=== PATIENT | female | born 1980 | race Caucasian/White ===

== ENCOUNTER 2019-04-10 19:13 | Emergency (ER) | payer OTHER, SELFPAY ==
--- NOTE | ~2019-04-10 | CT_ITS ---
EXAMINATION: CT lumbar spine wo con DATE: 04/10/2019 20:00 INDICATION: Low back pain. Fall. TECHNIQUE: Computed tomography (CT) of the lumbar spine was performed without intravenous contrast. A utomated exposure control and iterative reconstruction technique were employed. The dose-length produ ct was 1074.01 mGy-cm. COMPARISON: None FINDINGS: There is an intrauterine device in expected position. There is 2 degrees dextrocurvature of lumbar spine. Vertebral body heights are normal. There is mildly decreased disc height at L4-L5 and moderately decreased disc height at L5-S1. The following disc levels are specifically discussed: L1-L2: The disc does not extend beyond the endplate margin. There is mild bilateral facet joint osteo arthritis. There is no neural foraminal stenosis. There is no central canal stenosis. L2-L3: The disc does not extend beyond the endplate margin. There is mild bilateral facet joint osteo arthritis. There is no neural foraminal stenosis. There is no central canal stenosis. L3-L4: The disc does not extend beyond the endplate margin. There is mild bilateral facet joint osteo arthritis. There is no neural foraminal stenosis. There is no central canal stenosis. L4-L5: The disc is bulging. There is mild bilateral facet joint osteoarthritis. There is mild bilater al neural foraminal stenosis. There is mild central canal stenosis. L5-S1: The disc is bulging. There is mild bilateral facet joint osteoarthritis. There is mild bilater al neural foraminal stenosis. There is mild central canal stenosis. IMPRESSION: 1. No fracture. 2. Moderate lower lumbar spondylosis. Reviewed, dictated and finalized at location A. NELER OUTSOLE
[2019-04-10 19:20] VITALS: BP 130/91; PULSE 120; RESP 20; TEMP 36.9; O2SAT 100
--- NOTE | 2019-04-10 19:40 | ED.FALL ---
HPI - Fall General Chief Complaint: Fall Stated Complaint: FALL, BUTT PAIN Time Seen by Provider: 04/10/19 19:27 Source: patient Mode of arrival: ambulatory Limitations: no limitations History of Present Illness HPI Narrative: This is a 38 year old female that presents to the ER for low back pain after a fall yesterday. Reports she slipped going down her stairs. Reports falling onto her bottom down about 4 steps. Denies hitting her head or loss of consciousness. Reports since she has had low back/tailbone pain. Denies saddle anesthesia, or bowel/bladder incontinence. Related Data Home Medications Medication Instructions Recorded Confirmed alprazolam 02/10/19 buspirone mg 02/10/19 levonorgestrel [Mirena] 1 device INTRAUTERINE ONCE 02/10/19 02/10/19 omeprazole PO 02/24/19 Allergies Allergy/AdvReac Type Severity Reaction Status Date / Time aspirin Allergy Unknown Unknown Verified 04/10/19 19:23 caffeine Allergy Unknown Unknown Verified 04/10/19 19:23 codeine Allergy Unknown Unknown Verified 04/10/19 19:23 erythromycin base Allergy Unknown Unknown Verified 04/10/19 19:23 Review of Systems Review of Systems: Narrative: CONSTITUTIONAL: Denies fever MUSCULOSKELETAL: Reports back pain, joint pain, and myalgia. NEUROLOGIC: Denies numbness, or weakness. All systems reviewed & are unremarkable except as noted in HPI and below PMFSH Past Medical History Medical History (Updated 04/10/19 @ 20:22 by Preethi Yanez PA-C) Anxiety Depression Surgical History Surgical History (Updated 02/24/19 @ 18:50 by Abi Dickson, ADOPTION COUNSELOR, ) History of dilatation and curettage Social History Social History Smoking status: Heavy tobacco smoker Alcohol intake: current Exam Narrative: Exam Narrative: GENERAL: Well-appearing, well-nourished, and in no acute distress. HEAD: Normocephalic, atraumatic. EYES: EOMI. CHEST: Clear to auscultation. No respiratory distress. No wheezes rales or rhonchi HEART: Regular rate and rhythm. No murmur heard. Normal peripheral pulses. BACK: Tender to palpation of midline lumbar spine and sacrum EXTREMITIES: Normal range of motion. No edema. Strength equal in bilateral lower extremities (5/5). Normal patellar reflexes bilaterally SKIN: Warm, dry, no rash. NEURO: No focal deficits. Alert and oriented x3. PSYCH: Normal mood and affect Course Vital Signs Vital signs: Vital Signs Temperature 98.4 F 04/10/19 19:20 Pulse Rate 120 H 04/10/19 19:20 Respiratory Rate 20 04/10/19 19:20 Blood Pressure 130/91 H 04/10/19 19:20 Pulse Oximetry 100 04/10/19 19:20 Temperature 98.4 F 04/10/19 19:20 Pulse Rate 120 H 04/10/19 19:20 Respiratory Rate 20 04/10/19 19:20 Blood Pressure 130/91 H 04/10/19 19:20 Pulse Oximetry 100 04/10/19 19:20 MDM - Fall MDM Narrative Medical decision making narrative: Patient presents the emergency department for low back pain after a fall down steps yesterday. She is neurologically intact. CT lumbar spine is without acute changes. Patient was updated on case findings. She is to rest, use ice and take [id number] pain medication as needed. She was given warnings to return the ER. She is to follow-up with her primary care doctor Lab Data Labs: UCG Bedside Result Negative Reference Range: Negative Imaging Data Radiologist's impression: ITS Impressions Lumbar Spine CT 04/10/19 20:13 IMPRESSION: 1. No fracture. 2. Moderate lower lumbar spondylosis. Critical Care Time Critical Care Time Critical Care Time: No Discharge Plan Discharge Clinical Impression: Low back pain Qualifiers: Chronicity: acute Back pain laterality: midline Sciatica presence: without sciatica Qualified Code(s): M54.5 - Low back pain Patient Disposition: Home, Self-Care Condition: Stable Instructions: Acute Low Back Pain (ED) Addition
[2019-04-10] MEDS: ACETAMINOPHEN 500 MG TABLET 1000 MG PO (19:41)
[2019-04-10 20:31] VITALS: BP 106/52; PULSE 80; O2SAT 100
== END 2019-04-10 20:32 | disposition home or self-care (01) ==
PROVIDERS: Emergency Provider Emergency Medicine; PCP Physician Assistant
DX: S39.92XA Unspecified injury of lower back, initial encounter (principal); F41.9 Anxiety disorder, unspecified; F32.9 Major depressive disorder, single episode, unspecified; M47.816 Spondylosis without myelopathy or radiculopathy, lumbar region; F17.200 Nicotine dependence, unspecified, uncomplicated; W10.9XXA Fall (on) (from) unspecified stairs and steps, initial encounter
CPT/HCPCS: 72131; 81025; 99284; A9270

== ENCOUNTER 2019-09-13 18:17 | Emergency (ER) | payer OTHER, SELFPAY ==
[2019-09-13 18:29] VITALS: BP 132/85; PULSE 88; RESP 16; TEMP 36.8; O2SAT 100
--- NOTE | 2019-09-13 19:05 | ED.GENADULT ---
HPI - General Adult General Chief complaint: Upper Respiratory Infection Stated complaint: Migraine; Cold Time Seen by Provider: 09/13/19 19:06 Source: patient and RN notes reviewed Mode of arrival: ambulatory Limitations: no limitations History of Present Illness HPI narrative: This is a 39 years old female presents to the office for an evaluation of cough for one week. Cough is a little bit more productive than her smoker cough. She also reports sinus congestion and headache which prompted her to come in. Denies fever, difficulty breathing, vomiting or sick contact. She tried [id number] Tylenol and ibuprofen for her pain however she is not sure what to take for her sinus and cough. She has to call off work due to her illness and would like a work excuse. Related Data Home Medications Medication Instructions Recorded Confirmed alprazolam [Xanax] 0.25 mg PO DAILY 09/13/19 09/13/19 buspirone 5 mg PO TID 09/13/19 09/13/19 levonorgestrel [Mirena] 1 device INTRAUTERINE ONCE 09/13/19 09/13/19 Allergies Allergy/AdvReac Type Severity Reaction Status Date / Time aspirin Allergy Unknown Unknown Verified 04/10/19 19:23 caffeine Allergy Unknown Unknown Verified 04/10/19 19:23 codeine Allergy Unknown Rash Verified 09/13/19 18:35 erythromycin base Allergy Unknown Unknown Verified 04/10/19 19:23 Review of Systems Review of Systems: Narrative: CONSTITUTIONAL: Denies fever or feeling ill ENT: Reports sore throat contribute to coughing and sinus congestion CARDIOVASCULAR: Denies chest pain RESPIRATORY: Reports cough with wheezing GASTROINTESTINAL: Denies abdominal pain, nausea, vomiting SKIN: Denies rash MUSCULOSKELETAL: Denies acute back pain NEUROLOGIC: Denies lightheaded All other systems reviewed are negative, except as documented in HPI. [facility] Past Medical History Medical History Anxiety Depression Surgical History Surgical History History of dilatation and curettage Family History Family History Sibling Patient's sister is in good health Patient's brother is in good health Father Family history of malignant neoplasm Patient's father is Mother Family history of diabetes mellitus in first degree relative Family history of heart disease in male family member before age 55 Other Diabetes mellitus Family history of tuberculosis Social History Social History Smoking status: Heavy tobacco smoker Alcohol intake: current Gender identity (if verbalized by the patient): Female Comments At time of signature, I agree with nursing past medical, surgical, social and family history. There is no relevant family history pertinent to the presenting complaint. Exam Narrative: Exam Narrative: GENERAL: This is a well-nourished, well-developed patient, in no apparent distress. EYES: Sclera clear/white. Vision is grossly intact. EARS: External ears normal, auditory canals clear and without drainage, TMs normal without perforation. Hearing grossly intact. NOSE: External nose normal with no obvious nasal discharge, nares without redness, no rhinorrhea. THROAT: Mucous membranes moist, posterior pharynx slight erythema with drainage NECK: Neck supple, non-tender without lymphadenopathy, masses or thyromegaly. CARDIOVASCULAR: Regular rate and rhythm without murmurs, gallops, or rubs. RESPIRATORY: Diminished breath sounds in the lower lobe with expiratory wheezing noted in the left lobe. Breath sounds equal bilaterally. No use of accessory muscle post lip breathing. GASTROINTESTINAL: Abdomen soft, non-tender, nondistended. Bowel sounds are active. No hepato-splenomegaly, or palpable masses. No guarding. SKIN: warm, intact with no suspicious lesions or rash, good texture and turgor.
== END 2019-09-13 19:22 | disposition home or self-care (01) ==
PROVIDERS: Emergency Provider Nurse Practitioner
DX: J06.9 Acute upper respiratory infection, unspecified (principal); R05 Cough; Z20.828 Contact with and (suspected) exposure to other viral communicable diseases; F17.200 Nicotine dependence, unspecified, uncomplicated; F41.9 Anxiety disorder, unspecified
CPT/HCPCS: 99213; G0463

== ENCOUNTER 2019-09-23 15:52 | Outpatient (CLI) | payer OTHER, SELFPAY ==
--- NOTE | ~2019-09-23 | XR_ITS ---
XR chest 2V DATE: 09/23/2019 16:14 INDICATION: Cough. Positive test for COVID TECHNIQUE: PA and lateral views COMPARISON: None FINDINGS: Normal heart size. No hilar or mediastinal enlargement. The lungs are hyperinflated but lizbeth ar of infiltrate or consolidation. No pleural effusion or pulmonary vascular congestion or pneumothor ax. IMPRESSION: Bilateral hyperinflation; no active cardiopulmonary disease Reviewed, dictated and finalized at location A.
== END 2019-09-23 15:53 | disposition home or self-care (01) ==
LOC: ANHIMG 15:56
PROVIDERS: PCP Physician Assistant; Visit Provider Physician Assistant
DX: R07.9 Chest pain, unspecified (principal); R91.8 Other nonspecific abnormal finding of lung field
CPT/HCPCS: 71046

== ENCOUNTER 2019-10-19 10:32 | Outpatient (CLI) | payer OTHER, SELFPAY ==
--- NOTE | 2019-10-24 16:34 | WPDPFTINT ---
PFT Interpretation PFT Interpretation: DOS:10/19/2019 REQUESTING: ANDREI Herrera REASON FOR TESTING: shortness of breath PULMONARY FUNCTION TESTS Results are reliable and reproducible. Spirometry: FEV1 is 86% predicted, 2.32 L normal. FVC is normal. FEV 1% is decreased 67% consistent with airflow obstruction. there is a 10% increase in FEV1 with bronchodilator, more than 200 mls but less than 12%, does not meet ATS guidelines for significant response. The LMV05-62% is 40% and increases by 79%, almost a liter after bronchodilator. Lung volumes: TLC 100%, RV 88%, both are normal. No air trapping. Airway resistance increased 197%. Diffusion: DLCO is 64% mildly decreased. Flow volume loop: Lack of normal peak in the expiratory limb. IMPRESSION: Severe small airways pattern with excellent response to bronchodilator with a mild diffusion impairment. Low diffusion is not a feature of asthma. Decreased diffusion can be seen in anemia, smoking, early ILD, chronic thromboembolic disease and collagen vascular disease with pulmonary vascular involvement. In the proper clinical setting, the above pattern may represent asthma-COPD overlap. Lack of response to bronchodilator should not preclude use if clinically indicated. Lor Thurston MD
== END 2019-10-19 10:33 | disposition home or self-care (01) ==
LOC: ANHPFT 10:37
PROVIDERS: PCP Physician Assistant; Visit Provider Physician Assistant
DX: J44.9 Chronic obstructive pulmonary disease, unspecified (principal); R94.2 Abnormal results of pulmonary function studies
CPT/HCPCS: 94060; 94726; 94729

== ENCOUNTER 2019-11-03 10:18 | Outpatient (CLI) | payer OTHER, SELFPAY ==
--- NOTE | ~2019-11-03 | XR_ITS ---
EXAMINATION: XR lumbar spine 2-3V DATE: 11/03/2019 10:41 INDICATION: Acute low back pain. Injury. TECHNIQUE: 3 views of lumbar spine were obtained. COMPARISON: None. FINDINGS: There is 4 degrees dextrocurvature of lumbar spine. Vertebral body heights are normal. Ther e is mildly decreased disc height at L4-L5 and moderately decreased disc height at L5-S1. There are e ndplate osteophytes at most levels. There is multilevel mild facet joint osteoarthritis. There is an intrauterine device in expected position. IMPRESSION: 1. Moderate lower lumbar spondylosis. Reviewed, dictated and finalized at location B.
== END 2019-11-03 10:19 | disposition home or self-care (01) ==
LOC: ANHIMG 10:23
PROVIDERS: PCP Physician Assistant; Visit Provider Physician Assistant
DX: M47.896 Other spondylosis, lumbar region (principal)
CPT/HCPCS: 72100

== ENCOUNTER 2019-12-15 19:32 | Emergency (ER) | payer OTHER, SELFPAY ==
[2019-12-15 19:40] VITALS: BP 127/95; PULSE 124; RESP 20; TEMP 36.9; O2SAT 100
--- NOTE | 2019-12-15 19:45 | ED.FEMALEGU ---
HPI - Female Genitourinary General Chief complaint: Urogenital-Female Stated complaint: UTI Time Seen by Provider: 12/15/19 19:45 Source: patient and RN notes reviewed Mode of arrival: ambulatory Limitations: no limitations History of Present Illness HPI Narrative: 39-year-old female presents with concern for suprapubic cramping, pain with sex. Reports 3 days of symptoms. Reports she does not have a menstrual period because she has an IUD. Reports she had a normal gynecologic exam 2 months ago. She denies fever, chills, malaise. MD elicited complaint: UTI Pertinent past history: IUD Related Data Home Medications Medication Instructions Recorded Confirmed alprazolam [Xanax] 0.25 mg PO DAILY 09/13/19 09/13/19 buspirone 5 mg PO TID 09/13/19 09/13/19 levonorgestrel [Mirena] 1 device INTRAUTERINE ONCE 09/13/19 09/13/19 budesonide-formoterol [Symbicort] INHALATION 12/15/19 fluticasone propionate INTRANASAL 12/15/19 Allergies Allergy/AdvReac Type Severity Reaction Status Date / Time aspirin Allergy Unknown Unknown Verified 04/10/19 19:23 caffeine Allergy Unknown Unknown Verified 04/10/19 19:23 codeine Allergy Unknown Rash Verified 09/13/19 18:35 erythromycin base Allergy Unknown Unknown Verified 04/10/19 19:23 Review of Systems Review of Systems: Narrative: CONSTITUTIONAL: Denies malaise, chills, sweats, or fever. CARDIOVASCULAR: Denies chest pain, palpitations, or edema. RESPIRATORY: Denies dyspnea. GASTROINTESTINAL: Reports suprapubic cramping, denies other abdominal pain, nausea, vomiting, diarrhea, bloody, or mucous stools. GENITOURINARY: Denies dysuria or hematuria. Reports pain with sex MUSCULOSKELETAL: Denies myalgia. All systems reviewed & are unremarkable except as noted in HPI and below PMFSH Past Medical History Medical History (Updated 12/15/19 @ 19:59 by Miranda Yung NP) Anxiety Depression Surgical History Surgical History History of dilatation and curettage Family History Family History Sibling Patient's sister is in good health Patient's brother is in good health Father Family history of malignant neoplasm Patient's father is Mother Family history of diabetes mellitus in first degree relative Family history of heart disease in male family member before age 55 Other Diabetes mellitus Family history of tuberculosis Social History Social History Smoking status: Heavy tobacco smoker Alcohol intake: current Gender identity (if verbalized by the patient): Female Comments At time of signature, agree with nursing past medical, surgical, social and family history. There is no relevant family history pertinent to the presenting complaint Exam Narrative: Exam Narrative: GENERAL: Well-appearing, well-nourished, and in no acute distress. HEAD: Normocephalic. EYES: PERRLA, conjunctivae clear. NECK: Supple. No lymphadenopathy CHEST: Clear to auscultation. No respiratory distress. HEART: Regular rate and rhythm. No murmur heard. Normal peripheral pulses. ABDOMEN: Soft, nontender upon palpation, nondistended, normal active bowel sounds, no palpable or pulsatile masses, no guarding. No CVA tenderness SKIN: Warm, dry, no rash. NEURO: Alert and oriented x3. PSYCH: Normal mood and affect : Speculum Exam - Vagina: normal appearance of the vagina and normal vaginal discharge Speculum Exam - Cervix: normal appearance of the cervix, normal palpation, Cervical os closed and Other cervical findings present (IUD strings not visible or palpable) Course Course Emergency Course: Discussed with patient follow-up with her SEISMOGRAPH HELPER for confirmation of IUD placement, patient reports she should be able to see her SEISMOGRAPH HELPER tomorrow, understands reasons to go the emergency room if symptoms worsen or do not improve in
--- NOTE | 2019-12-15 19:53 | PC.NURSE ---
pelvic exam done by crystallographer to visualize strings for iud.
== END 2019-12-15 20:05 | disposition home or self-care (01) ==
PROVIDERS: Emergency Provider Nurse Practitioner; PCP Physician Assistant
DX: R10.30 Lower abdominal pain, unspecified (principal); F41.9 Anxiety disorder, unspecified; F32.9 Major depressive disorder, single episode, unspecified
CPT/HCPCS: 81003; 81025; 87077; 87086; 87088; 99213; G0463

== ENCOUNTER 2020-02-06 21:10 | Emergency (ER) | payer OTHER, SELFPAY ==
--- NOTE | ~2020-02-06 | XR_ITS ---
EXAMINATION: XR chest 1V portable DATE: 02/06/2020 21:57 INDICATION: Chest tightness. Heart racing. TECHNIQUE: frontal view of the chest was obtained. COMPARISON: Chest radiograph dated 09/23/2019 FINDINGS: The lungs remain clear with no focal airspace opacities, pulmonary edema, pleural effusion or pneumot horax. The cardiomediastinal silhouette is normal. Visualized bones and soft tissues are unremarkable . IMPRESSION: 1. No acute cardiopulmonary disease. Reviewed, dictated and finalized at location A. INSERTER
[2020-02-06 21:09] VITALS: BP 154/77; PULSE 165; RESP 22; TEMP 36.9; O2SAT 100
[2020-02-06 21:22] VITALS: PULSE 106; RESP 14; O2SAT 100
--- NOTE | 2020-02-06 21:26 | ECG_ITS ---
Measurements Intervals [place] Rate: 152 P: [place]: 0 QRS: 38 QRSD: 94 T: 52 QT: 308 QTc: 491 Interpretive Statements SINUS TACHYCARDIA, CONSIDER ATRIAL FLUTTER INCOMPLETE RIGHT BUNDLE BRANCH BLOCK ABNORMAL ECG Electronically Signed On 02-07-2020 7:00:22 TUNNELLER by Piyush Harry D.O.
--- NOTE | 2020-02-06 21:29 | ED.GENADULT ---
HPI - General Adult General Chief complaint: Arrhythmia/Palpitations Stated complaint: possible anxiety attack/rapid hr Time Seen by Provider: 02/06/20 21:14 Source: patient History of Present Illness HPI narrative: Patient is a 39 y/o female complaining severe heart palpitation, chest pain and SOB starting approximately 45 minutes ago. There is alleviating or exacerbating factor. She feels anxious. She states that she has history of anxiety, but it feels different than her usual anxiety attack. Related Data Home Medications Medication Instructions Recorded Confirmed alprazolam [Xanax] 0.25 mg PO DAILY 09/13/19 09/13/19 buspirone 5 mg PO TID 09/13/19 09/13/19 levonorgestrel [Mirena] 1 device INTRAUTERINE ONCE 09/13/19 09/13/19 budesonide-formoterol [Symbicort] INHALATION 12/15/19 fluticasone propionate INTRANASAL 12/15/19 Allergies Allergy/AdvReac Type Severity Reaction Status Date / Time aspirin Allergy Unknown Unknown Verified 04/10/19 19:23 caffeine Allergy Unknown Unknown Verified 04/10/19 19:23 codeine Allergy Unknown Rash Verified 09/13/19 18:35 erythromycin base Allergy Unknown Unknown Verified 04/10/19 19:23 Review of Systems Constitutional: Constitutional: Denies chills, Denies fever(s), Denies headache(s) and Denies weakness Eyes: Eyes: Denies blurry vision ENT: Denies headache(s) and Denies neck pain Cardiovascular: Cardiovascular: Reports chest pain, Reports rapid heart rate and Reports dyspnea Respiratory: Respiratory: Denies cough and Reports dyspnea Gastrointestinal: Gastrointestinal: Denies abdominal pain, Denies diarrhea, Denies nausea and Denies vomiting Genitourinary: Genitourinary: Denies hematuria and Denies dysuria Musculoskeletal: Musculoskeletal: Denies back pain and Denies neck pain Neurologic: Denies headache(s) and Denies weakness [facility] Past Medical History Medical History (Updated 02/07/20 @ 00:10 by Cierra Albarran MD) Anxiety Depression Surgical History Surgical History History of dilatation and curettage Family History Family History Sibling Patient's sister is in good health Patient's brother is in good health Father Family history of malignant neoplasm Patient's father is Mother Family history of diabetes mellitus in first degree relative Family history of heart disease in male family member before age 55 Other Diabetes mellitus Family history of tuberculosis Social History Social History Smoking status: Heavy tobacco smoker Alcohol intake: current Gender identity (if verbalized by the patient): Female Exam Const: General: no acute distress and well developed Orientation/consciousness: oriented to person, oriented to place, oriented to time and patient oriented x3 HENMT: Head: normocephalic Ears: external ears normal General nose exam: Normal external nose present Eyes: General: appearance normal, both eyes and all related structures Conjunctivae: conjunctivae normal Neck: Neck: normal visual inspection and full ROM Chest: Chest palpation & inspection: normal inspection of the chest and no tenderness Resp: Effort & Inspection: normal respiratory effort Auscultation: clear to auscultation bilaterally Cardio: Rate: tachycardic Rhythm: regular rhythm GI: GI Palp: No abdominal tenderness and Yes Soft to palpation Skin: General skin exam: normal color and turgor normal Neuro: General: oriented to person, oriented to place, oriented to time and patient oriented x3 Cognition (Neuro): normal cognition Extrem: General: normal to inspection, full ROM and no pedal edema Psych: Appearance: grossly normal Mental Status: mental status grossly normal Affect: Anxious affect present Course Vital Signs Vital signs: Vital Signs Temperature 36.9 C 02/06/20 2
[2020-02-06 22:00] LABS: Basophils Percent Auto 0.4 % (0.2-1.2); Eosinophils Absolute Auto 0.1 K/mm3 (0-0.3); Eosinophils Percent Auto 0.9 % (0-4.4); Hematocrit 44.7 % (37.0-47.0); Hemoglobin 15.8 g/dL (12.0-15.0); Immature Granulocyte Absolute 0.03 K/mm3 (0.00-0.031); Immature Granulocyte Percent A 0.3 % (0-0.5); Lymphocytes Percent Auto 30.6 % (18.3-44.2); Mean Corpuscular HGB Conc 35.3 g/dl (32-36); Mean Corpuscular Volume 96.1 fl (80-100); Mean Platelet Volume 12.1 fl (7.4-10.4); Monocytes Absolute Auto 0.5 K/mm3 (0.1-0.6); Neutrophils Absolute Auto 6.4 K/mm3 (1.3-6.7); Neutrophils Percent Auto 62.8 % (45.5-73.1); Platelet Count Result 275 k/mm3 (150-375); Red Blood Count 4.65 M/mm3 (4.2-5.4); Red Cell Distribution Width 12.1 % (11.5-14.5); White Blood Count 10.1 K/mm3 (4.5-10.0)
[2020-02-06] MEDS: ALPRAZolam (*CRX) 0.25 MG TABLET PO (22:01)
[2020-02-06 22:13] LABS: Alanine Aminotransferase 53 U/L (4-35); Albumin Level 4.4 g/dL (3.5-5.1); Alkaline Phosphatase 91 U/L (38-126); Anion Gap 9 mmol/L (8-16); Aspartate Amino Transferase 38 U/L (14-36); Bilirubin,Total 0.2 mg/dL (0.2-1.3); Blood Urea Nitrogen 6 mg/dL (7-17); Calcium 9.3 mg/dL (8.4-10.2); Carbon Dioxide 26 mmol/L (22-30); Chloride 103 mmol/L (98-107); Estimated CRCL calculation 89 ml/min; Estimated Glomerular Filt Rate > 60; Glucose 137 mg/dL (65-105); Potassium 3.5 mmol/L (3.4-5.0); Sodium 138 mmol/L (137-145)
[2020-02-06 22:21] LABS: NT Pro B Type Natriuretic Pept 21 PG/ML (5-100)
[2020-02-06 22:29] LABS: D Dimer 0.27 ug/mL (<0.48)
[2020-02-06 22:51] VITALS: BP 120/81; PULSE 91; RESP 18; O2SAT 100
--- NOTE | 2020-02-06 22:58 | ECG_ITS ---
Measurements Intervals [place] Rate: 87 P: 55 [place]: 136 QRS: 30 QRSD: 101 T: 32 QT: 373 QTc: 449 Interpretive Statements SINUS RHYTHM INCOMPLETE RIGHT BUNDLE BRANCH BLOCK BORDERLINE ECG Electronically Signed On 02-07-2020 7:01:53 SUPERVISOR BLOOD by Piyush Harry D.O.
[2020-02-07 00:19] VITALS: BP 113/79; PULSE 87; RESP 16; TEMP 36.7; O2SAT 100
[2020-02-07 00:33] LABS: Add Urine Microscopic? YES; Appearance Urine Cloudy (Clear); Bacteria Urine 2+ /hpf; Bilirubin Urine Negative (Negative); Blood Urine Negative (Negative); Color Urine Yellow (Yellow); Glucose Urine UA Negative (Negative); Ketones Urine Negative (Negative); Leukocyte Esterase Ur Trace LEU/UL (Negative); Mucus Urine Few /lpf; Nitrate Urine Negative (Negative); Protein Urine Negative (Negative); Specific Grav Ur 1.014 (1.001-1.035); Squamous Epithelial Cell Urine Many /hpf (Few)
== END 2020-02-07 00:20 | disposition home or self-care (01) ==
PROVIDERS: Emergency Provider Emergency Medicine; PCP Physician Assistant
DX: F41.9 Anxiety disorder, unspecified (principal); R00.0 Tachycardia, unspecified; F32.9 Major depressive disorder, single episode, unspecified; F17.200 Nicotine dependence, unspecified, uncomplicated; I45.10 Unspecified right bundle-branch block
CPT/HCPCS: 36415; 71045; 80053; 81001; 81025; 83880; 84443; 85025; 85380; 93005; 99283; A9270

== ENCOUNTER 2020-02-13 16:21 | Outpatient (CLI) | payer OTHER, SELFPAY ==
--- NOTE | ~2020-02-13 | US_ITS ---
EXAMINATION: US thyroid DATE: 02/13/2020 16:49 INDICATION: Goiter. TECHNIQUE: Multiple ultrasound images of the thyroid were obtained. COMPARISON: None. FINDINGS: The right thyroid lobe measures 4.5 x 2.0 x 1.8 cm. The left thyroid lobe measures 4.3 x 1.9 x 1.6 c m. In the right thyroid lobe, there is an 8 mm solid, hypoechoic, uooyn-[id number]-ghsm nodule with ill-de fined margin and macrocalcifications (TI-RADS TR4). IMPRESSION: 1. Small thyroid nodule, likely not clinically significant. No follow-up is needed. Reviewed, dictated and finalized at location B. [facility] IMPRESSION: 1. Small thyroid nodule, likely not clinically significant. No follow-up is nee ded.
== END 2020-02-13 16:22 | disposition home or self-care (01) ==
PROVIDERS: PCP Physician Assistant; Visit Provider Physician Assistant
DX: E04.9 Nontoxic goiter, unspecified (principal)
CPT/HCPCS: 76536

== ENCOUNTER 2020-05-04 15:27 | Emergency (ER) | payer OTHER, SELFPAY ==
--- NOTE | ~2020-05-04 | US_ITS ---
EXAMINATION: US pelvic complete w TV EXAM DATE: 05/04/2020 15:59 INDICATION: Right-sided pelvic pain after IUD insertion. TECHNIQUE: Pelvic transabdominal and transvaginal sonogram was performed. There are multiple graysca le and Doppler images available for interpretation. There is no prior study for comparison. FINDINGS: Uterus measures 7.0 x 3.5 x 4.5 cm, is anteverted with IUD centrally located inside the en dometrial cavity. Endometrial stripe measures 4 mm, within normal limits. There is no free pelvic f luid. Right adnexa: The ovary measures 2.6 x 1.5 x 1.5 cm and is morphologically normal. Ovarian vascular f low confirmed. Left adnexa: The ovary is not identified. There is no adnexal mass. IMPRESSION: 1. IUD in expected position. Reviewed, dictated and finalized at location B. ANIC ASSISTANT
[2020-05-04 15:29] VITALS: BP 164/95; PULSE 72; RESP 16; TEMP 35.7; O2SAT 100
--- NOTE | 2020-05-04 19:04 | PC.NURSE ---
first call for a bed - no answer @ 1033
--- NOTE | 2020-05-04 20:33 | PC.NURSE ---
called at 2032 - no answer
== END 2020-05-04 21:13 | disposition left against medical advice (07) ==
LOC: ANHED 20:43
PROVIDERS: Emergency Provider Emergency Medicine; PCP Physician Assistant
DX: R10.9 Unspecified abdominal pain (principal)
CPT/HCPCS: 76830; 76856; 99199; 99284

== ENCOUNTER 2020-08-17 08:00 | Outpatient (RCR) | payer OTHER, SELFPAY ==
--- NOTE | 2020-07-17 16:27 | PTOPEVAL ---
PHYSICAL THERAPY EVALUATION Thank you for referring Moni Stone to [facility].? Moni was evaluated for the dx of low back pain with right leg radicular numbness/pain. The patient is scheduled to be seen for therapy?2 x/week for 4 weeks. Please review, sign, date and return this plan of care TAYLOR. I agree with and certify that the following plan of care is medically necessary. Referring Physician Date Attending Provider: Radha Curran, ANDREI *PT Outpatient Evaluation Start: 07/17/20 14:41 Freq: Status: Active Protocol: Document 07/17/20 14:42 MLV (Rec: 07/17/20 15:55 MLV [id number]) Therapy Assessment Status Assessment Status Evaluation Evaluation Information Problem Diagnosis low back pain with right leg radicular pain/tingling Onset 1 year ago Cause no injury Additional Evaluation Detail Patient reports having trouble with L4 and the pain has become constant. The patient has right leg numbness that goes to her toes that began about 3 weeks ago. Patient can get relief of tingling/ numbness if she lies down for a while. 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 The patient is a single parent and does all house and yardwork. Patient denies trouble with her back prior to a year ago. Pt has tried some exercises but has not got relief. Subjective Information Pt reports 45% of sleep is Query Text:As Reported By Patient/ affected by her back pain. Family Diagnostic Tests X-Rays For This Problem Yes: no fractures; has spinal OA Pain Assessment Timing of Pain Assessment Timing of Pain Assessment Assessment Pain Scale Pain Scale Used Numeric (1 - 10) Self Report Pain Assessment Right Leg(s) Reported Pain Level 0 Radicular Pain Location right leg to toes 5 with activity Other Pain Description 4-10 severity of numbness/ tingling Pain Aggravating Factors Walking,Weight Bearing/ Standing Pain Behaviors Limping Right Lower Buttock(s) Reported Pain Level 4 Pain Description
--- NOTE | 2020-07-30 08:31 | PCPTNOTE ---
Patient called & cancelled scheduled appointment this date. Patient forgot about appt until she got to work and unable to make it.
--- NOTE | 2020-08-10 08:52 | PCPTNOTE ---
Patient called & cancelled scheduled appointment this date due to work.
--- NOTE | 2020-08-17 10:51 | PTOPEVAL ---
PHYSICAL THERAPY DISCHARGE Thank you for referring Moni Stone to [facility].? The patient has completed 7 visits for the dx of low back pain/leg radiculopathy. The patient has partially met goals and skilled PT needs are peaked. DC PT. Please review, sign, date and return this plan of care TAYLOR. I agree with and certify that the following plan of care is medically necessary. Referring Physician Date Attending Provider: Radha Curran, PA *PT Outpatient Discharge Start: 07/17/20 14:41 Freq: Status: Active Protocol: Document 08/17/20 08:10 MLV (Rec: 08/17/20 08:53 MLV [id number]) Therapy Assessment Status Assessment Status Discharge Evaluation Information Problem Diagnosis low back pain with right leg radicular pain/tingling Onset 1 year ago Cause no injury Additional Evaluation Detail Patient reports her pain and numbness continues despite the therapy intervention. The patient gets temporary stretch relief with exercises and is compliant with HEP. Patient reports poor sleep; still affected 45% as at eval. The patient has a follow up with MD on next Thursday. Pain Assessment Timing of Pain Assessment Timing of Pain Assessment Assessment Pain Scale Pain Scale Used Numeric (1 - 10) Self Report Pain Assessment Right Leg(s) Reported Pain Level 5 Pain Description Tingling Radicular Pain Location standing makes tingling go to 10 Right Lower Buttock(s) Reported Pain Level 5 Pain Description Pressure,Soreness,Tightness Other Pain Description pain with activity 10 Pain Score Pain Score 5,5: Self Report Interventions Used Interventions Used By Clinicians Education,Electrical Stimulation,Exercise,Heat, Manual Therapy Techniques, Traction Pain Relief Interventions Used By Exercise,Inactivity/Rest,Lying Patient Supine Other Alleviating Interventions tylenol Cervical and Lumbar ROM Lumbar ROM Lumbar Flexion Active Ankle Query Text:Hands to: Lumbar Extension (0-40) 30 Query Text:Active in Degrees Lumbar Lateral Flexion Right (0-40) 50 Query Text:Active in Degrees Lumbar Lateral Flexion Left (0-40) 50 Query Text:Active in Degrees Lateral Rotation Right (0-45) 45 Query Text:Active in Degr
== END 2020-08-21 10:30 | disposition home or self-care (01) ==
LOC: ANHPT 08:00
PROVIDERS: PCP Physician Assistant; Visit Provider Physician Assistant
DX: M54.41 Lumbago with sciatica, right side (principal)
CPT/HCPCS: 97012; 97014; 97110; 97140; 97162; G0283

== ENCOUNTER 2020-09-07 07:16 | Outpatient (CLI) | payer OTHER, SELFPAY ==
--- NOTE | ~2020-09-07 | MR_ITS ---
EXAMINATION: MR lumbar spine wo con DATE: 09/07/2020 08:18 INDICATION: Lumbago with right-sided sciatica. TECHNIQUE: Magnetic resonance imaging (MRI) of the lumbar spine was performed without intravenous con trast. Sequences included sagittal T2-weighted FSE, sagittal T2-weighted FS FSE, sagittal T1-weighted FSE, and axial T2-weighted FSE. COMPARISON: CT lumbar spine 04/10/2019 FINDINGS: Bone alignment is normal. Vertebral body heights are normal. There is mildly decreased disc height at L4-L5 and moderately decreased disc height at L5-S1 with endplate remodeling. The distal s pedro cord signal intensity is normal. The conus medullaris is at L1-L2. The following disc levels ar e specifically discussed: L1-L2: The disc does not extend beyond the endplate margin. There is mild bilateral facet joint osteo arthritis. There is no neural foraminal stenosis. There is no central canal stenosis. L2-L3: The disc does not extend beyond the endplate margin. There is mild bilateral facet joint osteo arthritis. There is no neural foraminal stenosis. There is no central canal stenosis. L3-L4: The disc does not extend beyond the endplate margin. There is moderate right and mild left fac et joint osteoarthritis. There is no neural foraminal stenosis. There is no central canal stenosis. L4-L5: The disc is bulging with superimposed right subarticular zone extrusion with mass effect on ri ght L5 nerve root in right lateral recess. There is moderate bilateral facet joint osteoarthritis. Th ere is moderate right and mild left neural foraminal stenosis. There is mild central canal stenosis. L5-S1: The disc is bulging with superimposed right central extrusion which abuts the right S1 nerve r oot in right lateral recess. There is mild right facet joint osteoarthritis. There is mild bilateral neural foraminal stenosis. There is mild central canal stenosis. IMPRESSION: 1. Moderate lower lumbar spondylosis. Of note, an extrusion at L4-L5 inserts mass effect on the right L5 nerve root. Reviewed, dictated and finalized at location A. IMPRESSION: 1. Moderate lower lumbar spondylosis. Of note, an extrusion at L4-L5 inserts ma ss effect on the right L5 nerve root.
== END 2020-09-07 07:17 | disposition home or self-care (01) ==
PROVIDERS: PCP Physician Assistant; Visit Provider Physician Assistant
DX: M54.41 Lumbago with sciatica, right side (principal); M47.817 Spondylosis without myelopathy or radiculopathy, lumbosacral region; M48.07 Spinal stenosis, lumbosacral region
CPT/HCPCS: 72148

== ENCOUNTER 2020-11-26 13:39 | Emergency (ER) | payer OTHER, SELFPAY ==
[2020-11-26 14:00] VITALS: BP 128/85; PULSE 93; RESP 18; TEMP 36.9; O2SAT 99
--- NOTE | 2020-11-26 17:40 | ED.URI ---
HPI - URI/Sore Throat General Chief Complaint: Upper Respiratory Infection Stated Complaint: Cough,Congestion Time Seen by Provider: 11/26/20 17:15 Source: patient, family, RN notes reviewed and old records reviewed Mode of arrival: ambulatory Limitations: no limitations History of Present Illness HPI Narrative: 40 year old female who presents to [facility] care with complaints to cough, headache, nasal congestion, and some sore throat for several days. She states that she has not had any fevers, chills or sweats or any body aches. Patient reports history of past bronchitis, emphysema with continued tobacco use of 1 pack of cigarettes daily. Patient has even and nonlabored respirations with no tachypnea noted, no accessory muscle use noted, has taken Robitussin for her cough.Patient reports that she has had a negative COVID test. MD elicited complaint: cough, rhinorrhea and nasal congestion Related Data Home Medications Medication Instructions Recorded Confirmed alprazolam [Xanax] 0.25 mg PO DAILY 09/13/19 09/13/19 buspirone 5 mg PO TID 09/13/19 09/13/19 levonorgestrel [Mirena] 1 device INTRAUTERINE ONCE 09/13/19 09/13/19 budesonide-formoterol [Symbicort] INHALATION 12/15/19 fluticasone propionate INTRANASAL 12/15/19 Allergies Allergy/AdvReac Type Severity Reaction Status Date / Time aspirin Allergy Unknown Unknown Verified 11/26/20 14:57 caffeine Allergy Unknown Unknown Verified 11/26/20 14:57 codeine Allergy Unknown Rash Verified 11/26/20 14:57 erythromycin base Allergy Unknown Unknown Verified 11/26/20 14:57 Review of Systems Review of Systems: CONSTITUTIONAL: Denies fever, chills, or sweats. EYES: Denies visual changes, redness, or discharge. ENT:Positive for rhinorrhea, congestion, sore throat, no otalgia. CARDIOVASCULAR: Denies chest pain, palpitations, or edema. RESPIRATORY: Positive for cough denies dyspnea. GASTROINTESTINAL: Denies abdominal pain, nausea, vomiting, or diarrhea. GENITOURINARY: Denies dysuria or hematuria. SKIN: Denies rash or itching. MUSCULOSKELETAL: Denies back pain, joint pain, or myalgia. NEUROLOGIC: Denies headache, numbness, or weakness. PSYCHIATRIC: Positive history of anxiety or depression. All systems reviewed & are unremarkable except as noted in HPI and below PMFSH Past Medical History Medical History (Updated 11/28/20 @ 16:18 by Anika Sands NP) Anxiety Bronchitis Depression Emphysema lung Right arm fracture surgical repair right radius fracture Surgical History Surgical History History of dilatation and curettage Family History Family History Sibling Patient's sister is in good health Patient's brother is in good health Father Family history of malignant neoplasm Patient's father is Mother Family history of diabetes mellitus in first degree relative Family history of heart disease in male family member before age 55 Other Diabetes mellitus Family history of tuberculosis Social History Social History (Updated 11/28/20 @ 16:19 by Anika Sands NP) Smoking status: Current every day smoker Alcohol intake: current Alcohol use details: social Substance use: never Living arrangements: with family Gender identity (if verbalized by the patient): Female Comments At time of signature, agree with nursing past medical, surgical, social and family history. There is no relevant family history pertinent to the presenting complaint Exam Narrative: GENERAL: Well-appearing, well-nourished, and in no acute distress. HEAD: Normocephalic, atraumatic. EYES: PERRLA and EOMI. ENT: Nares red with clear rhinorrhea no epistaxis. Mucous membranes moist.TM's normal with good light reflex, throat red with no lesions or exudates no tonsil swelling NECK: Supple.no lymphadenopathy CHEST: Clear decreased to auscultation. No respir
== END 2020-11-26 18:10 | disposition home or self-care (01) ==
PROVIDERS: Emergency Provider Registered Nurse; PCP Physician Assistant
DX: J06.9 Acute upper respiratory infection, unspecified (principal); J43.9 Emphysema, unspecified; F32.9 Major depressive disorder, single episode, unspecified; F41.9 Anxiety disorder, unspecified; F17.200 Nicotine dependence, unspecified, uncomplicated
CPT/HCPCS: 87081; 87880; 99213; G0463

== ENCOUNTER 2021-02-05 11:07 | Emergency (ER) | payer OTHER, SELFPAY ==
[2021-02-05 11:19] VITALS: BP 115/89; PULSE 89; RESP 16; TEMP 36.9; O2SAT 99
--- NOTE | 2021-02-05 11:51 | ED.URI ---
HPI - URI/Sore Throat General Chief Complaint: Upper Respiratory Infection Stated Complaint: cough Time Seen by Provider: 02/05/21 11:51 Source: patient and RN notes reviewed Mode of arrival: ambulatory Limitations: no limitations History of Present Illness HPI Narrative: 40-year-old female presents concern for 4-day history of cough, rhinorrhea, nasal congestion, sore throat, body aches, nausea. She has not been vaccinated for Covid, reports she had Covid in August 2019. She denies any [id number] intervention. MD elicited complaint: cough Related Data Home Medications Medication Instructions Recorded Confirmed alprazolam [Xanax] 0.25 mg PO DAILY 09/13/19 09/13/19 buspirone 5 mg PO TID 09/13/19 09/13/19 levonorgestrel [Mirena] 1 device INTRAUTERINE ONCE 09/13/19 09/13/19 Allergies Allergy/AdvReac Type Severity Reaction Status Date / Time aspirin Allergy Unknown Unknown Verified 02/05/21 11:45 caffeine Allergy Unknown Unknown Verified 02/05/21 11:45 codeine Allergy Unknown Rash Verified 02/05/21 11:45 erythromycin base Allergy Unknown Unknown Verified 02/05/21 11:45 Review of Systems Review of Systems: CONSTITUTIONAL: Reports malaise, chills. Denies sweats, or fever. EYES: Denies visual changes, redness, or discharge. ENT: Reports rhinorrhea, congestion, sore throat. Denies sinus pain, otalgia CARDIOVASCULAR: Denies chest pain, palpitations, or edema. RESPIRATORY: Reports cough. Denies dyspnea. GASTROINTESTINAL: Denies abdominal pain, vomiting, diarrhea. Reports nausea SKIN: Denies rash or itching. MUSCULOSKELETAL: Denies myalgia. NEUROLOGIC: Denies headache. All systems reviewed & are unremarkable except as noted in HPI and below PMFSH Past Medical History Medical History (Updated 02/05/21 @ 12:18 by Miranda Yung NP) Anxiety Bronchitis Depression Emphysema lung Right arm fracture surgical repair right radius fracture Surgical History Surgical History History of dilatation and curettage Family History Family History Sibling Patient's sister is in good health Patient's brother is in good health Father Family history of malignant neoplasm Patient's father is Mother Family history of diabetes mellitus in first degree relative Family history of heart disease in male family member before age 55 Other Diabetes mellitus Family history of tuberculosis Social History Social History (Updated 11/28/20 @ 16:19 by Ankia Sands NP) Smoking status: Current every day smoker Alcohol intake: current Alcohol use details: social Substance use: never Gender identity (if verbalized by the patient): Female Comments At time of signature, agree with nursing past medical, surgical, social and family history. There is no relevant family history pertinent to the presenting complaint Exam Narrative: GENERAL: Well-appearing, well-nourished, and in no acute distress. HEAD: Normocephalic EYES: PERRLA, conjunctivae clear ENT: Nares clear, clear discharge. Mucous membranes moist. TM pearly paulson with dull light reflex bilaterally; no tragal tenderness. Oropharynx mildly erythematous without lesions. Tonsils not enlarged and without exudate, no drooling, no hoarseness, no trismus, uvula midline. NECK: Supple. No lymphadenopathy CHEST: Clear to auscultation, breath sounds equal. No wheezing, rhonchi, rales, or stridor. No respiratory distress, speaks in full sentences. HEART: Regular rate and rhythm. No murmur heard. SKIN: Warm, dry, no rash. NEURO: Alert and oriented x3. PSYCH: Normal mood and affect Course Course Emergency Course: Patient is aware of diagnosis, understands and agrees to treatment plan. Anticipatory guidance given. Patient agrees to follow-up as directed and is aware of reasons to seek care at the emergency department. Portions of this re
== END 2021-02-05 12:46 | disposition home or self-care (01) ==
PROVIDERS: Emergency Provider Nurse Practitioner
DX: J06.9 Acute upper respiratory infection, unspecified (principal); Z20.822 Contact with and (suspected) exposure to COVID-19; F32.A Depression, unspecified; F41.9 Anxiety disorder, unspecified; F17.200 Nicotine dependence, unspecified, uncomplicated
CPT/HCPCS: 87081; 87426; 87880; 99213; C9803; G0463

== ENCOUNTER 2021-06-19 17:00 | Outpatient (RCR) | payer OTHER, SELFPAY ==
--- NOTE | 2021-05-06 15:23 | PTOPEVAL ---
PHYSICAL THERAPY INITIAL EVALUATION. Thank you for referring Moni Stone to [facility].? The patient is scheduled to be seen for therapy? 1x/week for 4 weeks. Please review, sign, date and return this plan of care TAYLOR. I agree with and certify that the following plan of care is medically necessary. Referring Physician Date Attending Provider: Radha Curran, PA *PT Outpatient Evaluation Start: 05/06/21 Evaluation Information Diagnosis Low back pain Onset chronic Subjective Information Pt reports her knee hurts Query Text:As Reported By Patient/ randomly after she is standing Family for a long time. She states her knee will give out and she gets a shooting pain in the back of her knee. She reports about 3-4 months of intermittent knee pain. Pt states she has chronic back pain, she reports she completed physical therapy in the summer of last year. She states it worked then but she does not do her exercises anymore and her back has started to hurt again. She reports stiffness that increases as the day goes on, her pain increases when she tries to go up stairs. Pt declines any numbness and tingling in her leg, she declines any radiating symptoms. Previous Treatments For This Problem Previous therapy for low back pain last year Pain Assessment Lower Back Reported Pain Level 6 Pain Description Aching,Soreness,Tightness Pain Frequency Chronic Lowest Pain Intensity 3 Greatest Pain Intensity 7 Pain Aggravating Factors Lifting,Walking,Weight Bearing /Standing Cervical and Lumbar ROM Lumbar Flexion Active Mid Shaw Lumbar Extension (0-40) 30 Lateral Flexion Finger tips to 3 in above knee Query Text:Active Hands to: joint line on the L, 1in on R knee Lateral Rotation Right (0-45) 45 Lateral Rotation Left (0-45) 45 Lumbar ROM 75% of Normal Normal Lumbar Segmental Motion Yes Lower Extremity Muscle Strength Testing Gross Lower Extremity Strength Grossly 4/5 in B LE
--- NOTE | 2021-05-14 08:27 | PCPTNOTE ---
Patient called & cancelled scheduled appointment this date due to being sick.
--- NOTE | 2021-05-28 08:27 | PCPTNOTE ---
Addendum entered by Nevaeh Gray, MEDICAL SUPPORT ASSISTANT 05/28/21 15:54: Patient reschedule appointment to later time this date. Original Note: Patient called & cancelled scheduled appointment this date due to having to work.
--- NOTE | 2021-06-03 11:45 | PTOPEVAL ---
PHYSICAL THERAPY PROGRESS REPORT. Thank you for referring Moni Stone to [facility].? The patient is scheduled to continue therapy? 1x/week for 4 weeks. Please review, sign, date and return this plan of care TAYLOR. I agree with and certify that the following plan of care is medically necessary. Referring Physician Date Attending Provider: Radha Curran, PA Evaluation Information Diagnosis Low back pain Onset chronic Subjective Information Pt reports her back still Query Text:As Reported By Patient/ bothers her but is getting Family better with time. Pt reports fair compliance with her exercises at home. She states posture is starting to become more of a concisus habit. Pt states she had a really busy weekend deep cleaning her house. Pain Assessment Lower Back Reported Pain Level 5 Greatest Pain Intensity 8 Cervical and Lumbar ROM Lumbar Flexion Active Mid Shaw Lumbar Extension (0-40) 40 Lateral Flexion Finger tips to 2 in above knee Query Text:Active Hands to: joint line on the L, 1in on R knee Lateral Rotation Right (0-45) 45 Lateral Rotation Left (0-45) 45 Lumbar ROM 75% of Normal Normal Lumbar Segmental Motion Yes Lumbar Comments No increase in pain Lower Extremity Muscle Strength Testing Gross Lower Extremity Strength Grossly 4/5 in B LE glute med B 3+/5 hip extension 3/5 Muscle Length Testing Two-Joint Hip Flexor Shortened Muscles Short (R) Iliopsoas,Short (L) Iliopsoas,Short (R) Rectus Femoris,Short (L) Rectus Femoris Left Hamstring Length -18 Right Hamstring Length -32 Posture Lumbar Spine Posture Increased Lordosis Shoulder Posture (L) Rounded,(R) Rounded Pelvis Posture Anteriorly Tilted Balance Assessment 5 Time Sit to Stand Time in Seconds 16 5 Time Sit to Stand Comments Without use of UEs PT Clinical Summary Moni presents to therapy today for her progress report following 2 therapy sessions for her low back pain. Today she demonstrates LE muscle length improvements and mild low back muscle length improvements. She continues to
--- NOTE | 2021-06-25 16:48 | PCPTNOTE ---
Patient did not show up for scheduled appointment this date. She was called and confirmed her appointment on 07/01/21.
--- NOTE | 2021-07-01 15:49 | PCPTNOTE ---
Attending Provider: Radha Curran, ANDREI Patient:Moni Stone Date of :1980 Called and talked to the patient today as this is the second time in a row she has not shown to her schedule appointment. She states she is doing a bit better but that the rest of her life has been really busy and hectic recently. She agreed to be discharged from therapy at this time. She will continue with her exercise program at home and follow up if she has any worsening symptoms. Patient?s initial visit was on 05/06/2021 13:30 and she had a total of 6 visits. The goals have been partially met. Thank you for referring this patient to [facility]. Please review, sign, date and return this discharge summary TAYLOR. I have been updated about the patient's current status and I agree with discharge from the above service at this time. Referring Physician Date
== END 2021-07-02 09:41 | disposition home or self-care (01) ==
LOC: ANHPT 17:00
PROVIDERS: PCP Physician Assistant; Visit Provider Physician Assistant
DX: M54.41 Lumbago with sciatica, right side (principal); M25.569 Pain in unspecified knee
CPT/HCPCS: 97110; 97112; 97161; 97530

== ENCOUNTER 2021-07-02 19:15 | Emergency (ER) | payer OTHER, SELFPAY ==
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
[2021-07-02 19:22] VITALS: BP 122/79; PULSE 91; RESP 18; TEMP 36.9; O2SAT 99
[2021-07-02] MEDS: SILVER SULFADIAZINE 1% CR 50 GM JAR (*BKC) 1 APPLIC TOPICAL (19:44)
== END 2021-07-02 19:49 | disposition home or self-care (01) ==
PROVIDERS: Emergency Provider Nurse Practitioner; PCP Physician Assistant
DX: T21.12XA Burn of first degree of abdominal wall, initial encounter (principal); X11.8XXA Contact with other hot tap-water, initial encounter; Y93.G3 Activity, cooking and baking; F41.9 Anxiety disorder, unspecified; J43.9 Emphysema, unspecified; F17.200 Nicotine dependence, unspecified, uncomplicated
CPT/HCPCS: 16000; 99213; A9270; G0463

== ENCOUNTER 2021-08-16 00:48 | Day surgery (SDC) | payer OTHER, SELFPAY ==
[2021-07-25 13:54] VITALS: BMI 28.5
[2021-08-16 10:13] VITALS: BP 105/74; PULSE 74; RESP 20; TEMP 36.4; O2SAT 100
[2021-08-16] MEDS: LACTATED RINGERS 1,000 ML 150 ML IV CONT (10:25)
--- NOTE | 2021-08-16 10:42 | WPDGICN ---
Assessment and Plan Assessment and plan (1) Dyspepsia: Code(s): R10.13 - Epigastric pain Status: Acute Assessment and Plan: Patient has symptoms of dyspepsia. This includes epigastric bloating. Her early satiety. She appears intolerant of some foods but not any specific dietary intake. Plan is for EGD to assess more thoroughly. One consideration is acid reflux. Patient may benefit from a trial of H2 blockers such as Pepcid or Gas-X to decrease bloating. Further recommendations may be given after endoscopy. GI Consult Note Consult date/time: 08/16/21 10:42 Reason for consult: dyspepsia. HPI: Moni Stone is a 41 year old female Referred for complaints of GE reflux disease. Patient states that she has had bloating and early satiety for 1 year. She notices regurgitation and substernal burning frequently after eating. She states originally was given a pill to take but only took this briefly as she felt this failed to alleviate her symptoms. Currently she takes no medications. She does not take any specific euza-gwy-sqhlocs medications. She continues to feel bloating with feeling full quickly after eating. Along with substernal pressure she describes as possibly being regurgitated. She presents today for EGD because of these complaints. She denies any weight loss or bleeding. Family history is noncontributory. Review of Systems Review of Systems: Review of systems noncontributory. [facility] Past Medical History Medical History (Updated 08/16/21 @ 10:44 by Matthew Carvajal MD) Anxiety Bronchitis Depression Emphysema lung Right arm fracture surgical repair right radius fracture Surgical History Surgical History History of dilatation and curettage Family History Family History Sibling Patient's sister is in good health Patient's brother is in good health Father Family history of malignant neoplasm Patient's father is Mother Family history of diabetes mellitus in first degree relative Family history of heart disease in male family member before age 55 Other Diabetes mellitus Family history of tuberculosis Social History Social History Smoking packs per day: 1 Smoking cigarettes per day: 20.0 Years smoked: 25 Smoking pack-years: 25.00 Smoking status: Current every day smoker Tobacco type: cigarettes Alcohol intake: current Drinks per week: 1 Alcohol use details: social Substance use: current Substance use type: marijuana Last use: daily Living arrangements: with family Gender identity (if verbalized by the patient): Female Spiritual care concerns: No Meds Home Medications and Allergies Home Medications Medication Instructions Recorded Confirmed Type levonorgestrel 20 mcg/24 hours (7 1 device intrauterine ONCE 09/13/19 07/02/21 History yrs) 52 mg intrauterine device (Mirena) buspirone 7.5 mg tablet 7.5 mg PO DAILY 07/02/21 07/25/21 History silver sulfadiazine 1 % topical 1 applic topical BID #25 grams 07/02/21 Rx cream (Silvadene) omeprazole 20 mg capsule,delayed 20 mg PO DAILY 07/25/21 07/25/21 History release Allergies Allergy/AdvReac Type Severity Reaction Status Date / Time aspirin Allergy Unknown Unknown Verified 08/16/21 10:11 codeine Allergy Unknown Rash Verified 08/16/21 10:11 erythromycin base Allergy Unknown Unknown Verified 08/16/21 10:11 Vital Signs Vital Signs - 24 hr 08/16/21 10:13 Temperature 97.6 F Pulse Rate 74 Respiratory Rate 20 Blood Pressure 105/74 Pulse Oximetry 100 Oxygen Delivery Room Air Exam Narrative: Physical exam reveals patient to be alert. Vital signs stable. HEENT exam is unremarkable. Patient anicteric. Lungs are clear to auscultation and percussion. Heart is without m
--- NOTE | 2021-08-16 10:50 | WPDANESEPPF ---
Anes - Initial Pre Proc Eval Procedure: Operation Date: 08/16/21 10:45 Proposed Procedures p Esophagogastroduodenoscopy - Matthew Carvajal MD Date/Time: 08/16/21 10:50 Surgeon: Matthew Carvajal MD Pre Op Diagnosis: GERD Patient Data Age: 41 Gender: F Height: 1.6 m Weight: 72 kg Last Vital Signs Temp 97.6 F 08/16/21 10:13 Pulse 74 08/16/21 10:13 Resp 20 08/16/21 10:13 BP 105/74 08/16/21 10:13 Pulse Ox 100 08/16/21 10:13 O2 Del Method Room Air 08/16/21 10:13 Allergies Allergy/AdvReac Type Severity Reaction Status Date / Time aspirin Allergy Unknown Unknown Verified 08/16/21 10:11 codeine Allergy Unknown Rash Verified 08/16/21 10:11 erythromycin base Allergy Unknown Unknown Verified 08/16/21 10:11 Home Medications Medication Instructions Recorded Confirmed Type levonorgestrel 20 mcg/24 hours (7 1 device intrauterine ONCE 09/13/19 07/02/21 History yrs) 52 mg intrauterine device (Mirena) buspirone 7.5 mg tablet 7.5 mg PO DAILY 07/02/21 07/25/21 History silver sulfadiazine 1 % topical 1 applic topical BID #25 grams 07/02/21 Rx cream (Silvadene) omeprazole 20 mg capsule,delayed 20 mg PO DAILY 07/25/21 07/25/21 History release Patient hx anesthesia problems: none Family hx anesthesia problems: none Results Review: All pre-operative results and documents have been reviewed as part of the pre-operative evaluation. [facility] Past Medical History Medical History (Updated 08/16/21 @ 10:44 by Matthew Carvajal MD) Anxiety Bronchitis Depression Emphysema lung Right arm fracture surgical repair right radius fracture Surgical History Surgical History History of dilatation and curettage Family History Family History Sibling Patient's sister is in good health Patient's brother is in good health Father Family history of malignant neoplasm Patient's father is Mother Family history of diabetes mellitus in first degree relative Family history of heart disease in male family member before age 55 Other Diabetes mellitus Family history of tuberculosis Social History Social History Smoking packs per day: 1 Smoking cigarettes per day: 20.0 Years smoked: 25 Smoking pack-years: 25.00 Smoking status: Current every day smoker Tobacco type: cigarettes Alcohol intake: current Drinks per week: 1 Alcohol use details: social Substance use: current Substance use type: marijuana Last use: daily Living arrangements: with family Gender identity (if verbalized by the patient): Female Spiritual care concerns: No Anes - Eval Final PreProcedure Day of Procedure 08/16/21 10:50 Patient weight: normal Heart: regular rate and rhythm Lungs: clear to auscultation Airway: Mallampati scale class II Neurological: alert and oriented Last oral intake: >/= 8 hours ASA classification: II Emergent: no Anesthetic plan: proceed Anesthesia type and monitoring: general GIVS and standard monitoring Results Review: All pre-operative results and documents have been reviewed as part of the pre-operative evaluation. Informed Consent: The patient's anesthetic plan and its attendant risks and benefits were discussed with the patient/family/POA. Questions were solicited and answers provided to the satisfaction of the patient/family/POA.
[2021-08-16 11:02] VITALS: BP 98/53; PULSE 70; RESP 17; O2SAT 98
[2021-08-16 11:12] VITALS: BP 103/58; PULSE 67; RESP 20; O2SAT 100
[2021-08-16 11:22] VITALS: BP 102/75; PULSE 71; RESP 24; O2SAT 100
== END 2021-08-16 11:33 | disposition home or self-care (01) ==
PROVIDERS: PCP Physician Assistant; Visit Provider Internal Medicine Gastroenterology
PROC: 0DJ08ZZ Inspection of Upper Intestinal Tract, Via Natural or Artificial Opening Endoscopic (ICD-10-PCS; CPT 43235; principal; 2021-08-16 10:45)
DX: K30 Functional dyspepsia (principal); R14.0 Abdominal distension (gaseous); K21.00 Gastro-esophageal reflux disease with esophagitis, without bleeding; F41.9 Anxiety disorder, unspecified; F32.A Depression, unspecified; J43.9 Emphysema, unspecified; F12.90 Cannabis use, unspecified, uncomplicated; F17.210 Nicotine dependence, cigarettes, uncomplicated
CPT/HCPCS: 43239; 87081; J2001; J2704; J7120

== ENCOUNTER 2021-12-12 14:34 | Emergency (ER) | payer OTHER, SELFPAY ==
--- NOTE | ~2021-12-12 | XR_ITS ---
EXAMINATION: XR chest 2V 12/12/2021 15:47 INDICATION: Cough for 2 weeks PROCEDURE: 2 view chest COMPARISON: Comparison to multiple prior studies sequentially, with oldest reviewed study dated 10/2018. FINDINGS: The lungs are clear. The cardiomediastinal silhouette is within normal limits. There are no pleural effusions. There is no pneumothorax suspected. IMPRESSION: 1: NO ACUTE CARDIOPULMONARY DISEASE. Reviewed, dictated and finalized at location A.
[2021-12-12 14:44] VITALS: BP 128/87; PULSE 96; RESP 16; TEMP 36.7; O2SAT 99
--- NOTE | 2021-12-12 15:36 | ED.URI ---
HPI - URI/Sore Throat General Chief Complaint: Upper Respiratory Infection Stated Complaint: Coughing,Back Pain Time Seen by Provider: 12/12/21 15:37 Source: patient, RN notes reviewed and old records reviewed Mode of arrival: ambulatory Limitations: no limitations History of Present Illness HPI Narrative: 41-year-old female presents to the [facility] with complaints of cough and back pain for the last 2 weeks. Patient is a smoker. Patient denies any fevers. States that her sons had COVID 2 weeks ago right before her symptoms started, states she first thought it was COVID and thought it was allergies. Has tried ktej-esv-htgoxiv products with no relief. Related Data Home Medications Medication Instructions Recorded Confirmed levonorgestrel 20 mcg/24 hours (8 1 device intrauterine ONCE 09/13/19 12/12/21 yrs) 52 mg intrauterine device (Mirena) buspirone 7.5 mg tablet 7.5 mg PO DAILY 07/02/21 12/12/21 alprazolam 0.25 mg tablet 0.25 mg PO DAILY 12/12/21 12/12/21 omeprazole 40 mg capsule,delayed 40 mg PO DAILY 12/12/21 12/12/21 release Allergies Allergy/AdvReac Type Severity Reaction Status Date / Time aspirin Allergy Unknown Unknown Verified 12/12/21 15:40 codeine Allergy Unknown Rash Verified 12/12/21 15:40 erythromycin base Allergy Unknown Unknown Verified 12/12/21 15:40 Review of Systems Review of Systems: All systems reviewed & are unremarkable except as noted in HPI and below Constitutional: Constitutional: Reports no additional constitutional complaints, Denies chills and Denies fever(s) Eyes: Eyes: Reports no additional eye complaints ENT: Reports system reviewed and no additional complaints, except as documented Cardiovascular: Cardiovascular: Reports no additional cardiovascular complaints Respiratory: Respiratory: Reports as per HPI, Denies chest congestion, Reports cough, Reports dyspnea and Denies wheezing Gastrointestinal: Gastrointestinal: Reports no additional gastrointestinal complaints Musculoskeletal: Musculoskeletal: Reports no additional musculoskeletal complaints Integumentary/Breasts: Skin/Breast: Reports system reviewed and no additional complaints, except as docu Neurologic: Reports system reviewed and no additional complaints, except as documented Psychiatric: Psychiatric: Reports no additional psychiatric complaints Allergic/Immunologic: Allergic/Immunologic: Reports no additional allergic/immunologic complaints PMFSH Past Medical History Medical History Anxiety Bronchitis Depression Emphysema lung Right arm fracture surgical repair right radius fracture Surgical History Surgical History History of dilatation and curettage Family History Family History Sibling Patient's sister is in good health Patient's brother is in good health Father Family history of malignant neoplasm Patient's father is Mother Family history of diabetes mellitus in first degree relative Family history of heart disease in male family member before age 55 Other Diabetes mellitus Family history of tuberculosis Social History Social History Smoking packs per day: 1 Smoking cigarettes per day: 20.0 Years smoked: 25 Smoking pack-years: 25.00 Smoking status: Current every day smoker Tobacco type: cigarettes Alcohol intake: current Drinks per week: 1 Alcohol use details: social Substance use: current Substance use type: marijuana Last use: daily Gender identity (if verbalized by the patient): Female Spiritual care concerns: No Comments At the time of my signature, I reviewed and agree with the nursing past medical, surgical, social, and family history. There is no relevant family history pertinent to the patient compl
== END 2021-12-12 16:12 | disposition home or self-care (01) ==
PROVIDERS: Emergency Provider Nurse Practitioner; PCP Physician Assistant
DX: J40 Bronchitis, not specified as acute or chronic (principal); F17.210 Nicotine dependence, cigarettes, uncomplicated; F12.90 Cannabis use, unspecified, uncomplicated; J43.9 Emphysema, unspecified; F41.9 Anxiety disorder, unspecified; F32.A Depression, unspecified
CPT/HCPCS: 71046; 99213; G0463

== ENCOUNTER 2022-02-20 08:06 | Outpatient (CLI) | payer OTHER, SELFPAY ==
--- NOTE | ~2022-02-20 | MM_ITS ---
EXAMINATION: MM screening evie BI w libertad HISTORY: Screening TECHNIQUE: Craniocaudal and mediolateral oblique 3-D tomosynthesis images were obtained and synthetic 2-D images were generated. CAD analysis was submitted and interpreted. COMPARISON: No prior mammogram is available for comparison at this institution. BREAST PARENCHYMAL COMPOSITION: There are scattered areas of fibroglandular density. FINDINGS: There is no mammographic evidence for malignancy in the right breast. There are multiple ma sses in the left breast. Additionally, there is clustered pleomorphic calcifications in the mid outer aspect of the left breast. IMPRESSION: 1. Multiple left breast masses with pleomorphic clustered calcifications mid outer aspect. 2. Additional mammographic views and possible breast ultrasound are recommended. BI-RADS Category 0: Incomplete: Needs additional imaging evaluation. Reviewed, dictated and finalized at location B. IGURATION RELEASE MANAGER IMPRESSION: 1. Multiple left breast masses with pleomorphic clustered calcifications mid ou ter aspect. 2. Additional mammographic views and possible breast ultrasound are recommended . BI-RADS Category 0: Incomplete: Needs additional imaging evaluation.
== END 2022-02-20 08:07 | disposition home or self-care (01) ==
PROVIDERS: PCP Physician Assistant; Visit Provider Physician Assistant
DX: Z12.31 Encounter for screening mammogram for malignant neoplasm of breast (principal); N63.25 Unspecified lump in the left breast, overlapping quadrants
CPT/HCPCS: 77063; 77067

== ENCOUNTER 2022-03-29 10:32 | Outpatient (CLI) | payer OTHER, SELFPAY ==
--- NOTE | ~2022-03-29 | XR_ITS ---
EXAMINATION: XR chest 2V DATE: 03/29/2022 10:48 INDICATION: Cough. TECHNIQUE: Frontal and lateral views of the chest were obtained. COMPARISON: Chest 2 views 12/12/21 FINDINGS: There is no pneumonia, pleural effusion, or pneumothorax. The heart size is normal. IMPRESSION: 1. No acute cardiopulmonary disease. Reviewed, dictated and finalized at location A. ISTHENICS INSTRUCTOR
== END 2022-03-29 10:33 | disposition home or self-care (01) ==
LOC: ANHIMG 10:38
PROVIDERS: PCP Physician Assistant; Visit Provider Physician Assistant
DX: R05.9 Cough, unspecified (principal)
CPT/HCPCS: 71046

== ENCOUNTER 2022-04-01 11:29 | Outpatient (CLI) | payer OTHER, SELFPAY ==
--- NOTE | ~2022-04-01 | MMUS_ITS ---
EXAMINATION: MM diagnostic evie LT w libertad, US breast LT complete HISTORY: Multiple left breast masses and left breast microcalcifications on 02/20/2022 screening mamm ogram examination TECHNIQUE: Additional 3-D tomosynthesis images of the left breast were performed and synthetic 2-D im ages were generated. CAD analysis was submitted and interpreted. High resolution complete left breast ultrasound including all 4 quadrants and subareolar area was performed. COMPARISON: 02/20/2022 bilateral screening mammogram FINDINGS: MAMMOGRAPHIC FINDINGS: A rounded approximately 11 mm circumscribed opacity is noted in the central left breast 4.8 cm deep t o the nipple. An adjacent 6.4 mm circumscribed opacity is noted. Additional left breast masses may be obscured by somewhat heterogeneously dense stroma. There are numerous segmental indeterminate granular appearing microcalcifications in the posterior ou ter mid left breast. ULTRASOUND: 2:00 near nipple: 12.8 x 6.5 x 9.7 mm simple cyst 3:00 2 cm from nipple: There is a single lobular cyst or 2 immediately contiguous cysts; overall dime nsion measures up to approximately 6 x 10 mm. 11:00 3 cm from nipple: Multi septated cyst or cluster of cysts measures up to approximately 3.5 x 8. 4 mm. No suspicious mass or shadowing of the left breast is detected. IMPRESSION: 1. Indeterminate segmental posterior mid outer left microcalcifications 2. Stereotactic biopsy of left microcalcifications is recommended BI-RADS category 4, suspicious findings. Dr. Bañuelos telephoned the report and stereotactic biopsy recommendation on 03/28/2022 at 1322 hours to DOREEN Melvin and Ab Sewell Reviewed, dictated and finalized at location A. UCTION EXPEDITER IMPRESSION: 1. Indeterminate segmental posterior mid outer left microcalcifications 2. Stereotactic biopsy of left microcalcifications is recommended BI-RADS category 4, suspicious findings. Dr. Bañuelos telephoned the report and stereotactic biopsy recommendation on 023 at 1322 hours to DOREEN Armando and Ab Sewell
== END 2022-04-01 11:30 | disposition home or self-care (01) ==
PROVIDERS: PCP Physician Assistant; Visit Provider Physician Assistant
DX: R92.8 Other abnormal and inconclusive findings on diagnostic imaging of breast (principal)
CPT/HCPCS: 76641; 77061; 77065; G0279

== ENCOUNTER 2022-05-01 10:48 | Outpatient (CLI) | payer OTHER, SELFPAY ==
--- NOTE | ~2022-05-01 | MM_ITS ---
EXAMINATION: MM stereotactic bx LT, MM post biopsy diagnostic LT, MM stereotactic specimen LT, Specim en Radiograph, Tissue Marker Clip Placement, Unilateral Mammogram DATE: 05/01/2022 12:25 INDICATION: Abnormal mammogram: Outer mid left breast microcalcifications. TECHNIQUE AND FINDINGS: The risks and potential benefits of the procedure were discussed with the patient and written informe d consent was obtained. Timeout procedure was performed. The patient was placed in the prone position on the dedicated stereotactic table with the left breast in lateral medial. compression, and the are a of interest was localized and targeted utilizing digital imaging with stereotaxis. After sterile preparation of the skin, 2 % lidocaine was utilized for local anesthesia at the skin pu ncture site and 2 % lidocaine with epinephrine was utilized for deeper local anesthesia/is about the biopsy site. A 9G [employer] vacuum assisted biopsy needle was advanced to the level of the calcification of interest from a lateral approach utilizing stereotactic guidance and a total of 12 tissue core bi opsies were obtained. A specimen radiograph demonstrates multiple calcifications of interest within the tissue cores. A tissue marker clip was then placed at the biopsy site. A digital mammographic exposure confirmed d eployment of the biopsy marker, but the marker is situated in the medial mid left breast approximatel y 4.5 cm medial to the grouped microcalcifications of interest. The needle was removed and hemostasis was achieved. A sterile bandage was applied. The patient tole rated the procedure well and there is no evidence of significant immediate complication. The patient was given verbal as well as written postprocedural instructions prior to discharge from the [facility]. Tissue cores were submitted to surgical pathology for histologic analysis. A 2-view right unilateral digital mammogram was obtained post procedure, demonstrating the tissue mar ker 4.5 cm medial to expected position, having apparently migrated medially. IMPRESSION: 1. Stereotactic biopsy of left breast microcalcifications; please refer to pathology report for hist ologic analysis 2. Tissue marker is situated approximately 4.5 cm medial to the microcalcifications of interest, havi ng apparently migrated. However, multiple microcalcifications from the area of interest in the outer mid left breast are present within the specimen tissue. Reviewed, dictated and finalized at Location A. Reviewed, dictated and finalized at location A. ICAL THERAPIST TECHNICIAN IMPRESSION: 1. Stereotactic biopsy of left breast microcalcifications; please refer to pat hology report for histologic analysis 2. Tissue marker is situated approximately 4.5 cm medial to the microcalcificat ions of interest, having apparently migrated. However, multiple microcalcificat ions from the area of interest in the outer mid left breast are present within the specimen tissue. IMPRESSION: 1. Stereotactic biopsy of left breast microcalcifications; please refer to pat hology report for histologic analysis 2. Tissue marker is situated approximately 4.5 cm medial to the microcalcificat ions of interest, having apparently migrated. However, multiple microcalcificat ions from the area of interest in the outer mid left breast are present within the specimen tissue.
== END 2022-05-01 10:49 | disposition home or self-care (01) ==
PROVIDERS: PCP Physician Assistant; Visit Provider Physician Assistant
DX: R92.8 Other abnormal and inconclusive findings on diagnostic imaging of breast (principal); N60.12 Diffuse cystic mastopathy of left breast
CPT/HCPCS: 19081; 77065; 88305; A4648

== ENCOUNTER 2022-05-05 08:20 | Outpatient (CLI) | payer OTHER, SELFPAY ==
--- NOTE | 2022-05-07 18:34 | WPDPFTINT ---
PFT Interpretation DOS: 05/05/2022 REQUESTING: Moni Lau APRN REASON FOR TESTING: COPD PULMONARY FUNCTION TESTS Results are reliable and reproducible. Spirometry: Pre-bronchodilator FEV1 is 2.64 L, 91%, normal. Pre-bronchodilator FVC is 3.64 L, 103%, normal. FEV1/FVC is 73%, within the normal range. After bronchodilator administration there is a 13% drop in FEV1, 2.30 L, 80% predicted. After bronchodilator, there is a 3% drop in the FVC, 100% predicted, 3.54 L. The FEV1/FVC ratio is 65 which is below normal. Lung volumes: Total lung capacity is 4.47 L, 91%, normal. Residual volume is 0.83 L, 54%, low end of normal. RV/TLC is 19%, below normal. There is no hyperinflation or air trapping. Airway resistance is 2.73 cm water/ L/2nd, 179% predicted, elevated. Diffusion: DLCO is 16.2, 69% predicted, mildly decreased. The DLCO/VA is 3.77, 79% predicted, in the normal range. Flow volume loop: Normal. IMPRESSION : Normal spirometry, lung volumes with a mild diffusion impairment which corrects for alveolar volume. There is a drop in flows after bronchodilator administration. She had a previous spirometry 10/19/2019. The FEV1 was 2.32 L, 86%, normal. FVC was 3.46 L, 100%, normal. FEV1 / FVC was 67%, mildly decreased. There was a 10% increase in FEV1 after bronchodilator. Lor Thurston MD
--- NOTE | 2022-05-07 19:27 | WPDSIXMINUTE ---
Six Minute Walk Procedure Procedure Performed Pulmonary Stress Test (6 min walk) Six Minute Walk Six Minute Walk: DOS: 05/05/2022 ? REQUESTING: Moni Lau APRN ? REASON FOR TESTING:? Exertional dyspnea SIX MINUTE WALK This test was conducted per ATS standards. The initial saturation was 97% and pulse was 81. The patient walked while breathing room air and did not stop to rest. Saturation remained 96-98% during the walk. The maximum pulse was 103. During recovery, pulse returned to baseline. The patient had a Luc dyspnea score of 0.5, very low during the walk. During recovery, the Luc dyspnea scale was 2. Fatigue score was 5 during the walk and during recovery. The patient walked a distance of 213 m, 700 ft which is less than expected. IMPRESSION: This study shows no desaturation during walking. No supplemental oxygen is indicated. The patient walked a shorter distance than expected for her age. Lor Thurston MD
== END 2022-05-05 08:21 | disposition home or self-care (01) ==
LOC: ANHPFT 08:23
PROVIDERS: PCP Physician Assistant; Visit Provider Nurse Practitioner Gerontology
DX: J44.9 Chronic obstructive pulmonary disease, unspecified (principal)
CPT/HCPCS: 94060; 94618; 94726; 94729

== ENCOUNTER 2022-05-12 08:11 | Outpatient (CLI) | payer OTHER, SELFPAY ==
--- NOTE | 2022-06-05 19:31 | WPDSLEEPSTUD ---
Sleep Study Date of Study: 05/12/22 Ordering Provider: Moni Lau, NATE Interpreting Physician: Rima Boyer, DO Sleep Study Type: Polysomnogram Height: 1.6 m Weight: 75.75 kg Body Mass Index: 29.5 Neck Circumference (inches): 16 Sargeant: 5 Reason for Sleep Study Daytime hypersomnia Sleep History The patient is a 41-year-old female with generalized anxiety disorder with panic attacks, COPD, history of tuberculosis and current tobacco use that had a sleep study ordered by her pulmonary group for evaluation of LAURA. 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 She denies awakening from sleep short of breath. She rarely awakens at night with heartburn, belching or cough. She frequently has trouble sleeping when she has a cold. She denies waking up gasping for air throughout the night. She rarely has breathing problems at night observed by herself or others. She denies sweating excessively at night. She denies having heart palpitations or irregular heartbeats during the night. She denies falling asleep during the day and denies falling asleep while driving. She rarely experiences loss of muscle tone when extremely emotional. She frequently has trouble at school or work due to sleepiness. He denies feeling unable to move while waking up or falling asleep. He rarely experiences vivid dreamlike scenes upon awakening or falling asleep. She rarely feels afraid of going to sleep. She denies having nightmares. She occasionally remembers her dreams. She constantly has thoughts racing through her mind. She frequently feels sad and depressed. She constantly has anxiety. He rarely has muscular tension. She denies noticing parts of her body jerk. She denies kicking during the night. She denies having crawling and aching feelings in her legs and denies having leg pain throughout the night. She denies grinding her teeth during sleep and rarely awakens with morning jaw pain. She is rarely bothered by pain during the day and never awakened by pain during the night. She occasionally wakes up feeling stiff in the morning. She occasionally wakes up with sore or achy muscles. She frequently wakes up with pain in, spine or other joints. She goes to bed at 8:30 p.m. on both weekdays and weekends. It takes her 2 and half to 3 hours to fall asleep. She will occasionally wake up throughout the night. When she awakens, she will watch television or read. It can take several hours for her to fall back asleep. She wakes up between 7-7:30 a.m. on weekdays and between 7-8:30 a.m. on the weekends. She typically gets 8 hours of sleep per night. sometimes will spend is little as 10 minutes in bed after waking up in the morning and sometimes she will spend all the. She currently lives with her 2 children. She will consume caffeinated beverages within 2 hours of bedtime. She does not engage in physical exercise before bedtime. She will watch television and occasionally rate before falling asleep. She denies taking naps in the afternoon or evening She currently consumes 1 gallon of a caffeinated beverage per day. she currently smokes 1 pack of cigarettes per day. She denies alcohol use. She admits to recreational drug use. [facility] Past Medical History Medical History Anxiety Bronchitis Depression Emphysema lung Right arm fracture surgical repair right radius fracture Surgical History Surgical History History of dilatation and curettage Family History Family History Sibling Patient's sister is in good health Patient's brother is in good health Father Family history of malignant neoplasm Patient's father is Mother Family history of diabetes mellitus in first degree relative Family history of heart disease in male family member before age 55 Other D
[2022-06-05 19:41] VITALS: BMI 29.5
== END 2022-05-13 07:09 | disposition home or self-care (01) ==
LOC: ANHCSM 08:12
PROVIDERS: PCP Physician Assistant; Visit Provider Nurse Practitioner Gerontology
DX: G47.30 Sleep apnea, unspecified (principal); G47.9 Sleep disorder, unspecified
CPT/HCPCS: 95810

== ENCOUNTER 2023-01-08 19:33 | Emergency (ER) | payer OTHER, SELFPAY ==
[2023-01-08 19:40] VITALS: BP 144/87; PULSE 84; RESP 16; TEMP 36.2; O2SAT 100
--- NOTE | 2023-01-08 19:45 | ED.URI ---
HPI - URI/Sore Throat General Chief Complaint: Neck Pain/Injury Stated Complaint: Headache Time Seen by Provider: 01/08/23 19:45 Source: patient, RN notes reviewed and old records reviewed Mode of arrival: ambulatory Limitations: no limitations History of Present Illness HPI Narrative: 42-year-old female presents to the [facility] with pain to the posterior lower head. Denies any blurry vision, change in vision. Facial symmetry noted. Moves all extremities. Denies fevers. No treatment prior to arrival Denies any injury. States it has been going on at least 1 week. Treatments prior to arrival: none Related Data Home Medications Medication Instructions Recorded Confirmed levonorgestrel 21 mcg/24 hours (8 1 device intrauterine ONCE 09/13/19 01/08/23 yrs) 52 mg intrauterine device (Mirena) buspirone 7.5 mg tablet 7.5 mg PO DAILY 07/02/21 01/08/23 alprazolam 0.25 mg tablet 0.25 mg PO DAILY 12/12/21 01/08/23 Allergies Allergy/AdvReac Type Severity Reaction Status Date / Time aspirin Allergy Unknown Unknown Verified 01/08/23 19:38 codeine Allergy Unknown Rash Verified 01/08/23 19:38 erythromycin base Allergy Unknown Unknown Verified 01/08/23 19:38 Review of Systems Review of Systems: All systems reviewed & are unremarkable except as noted in HPI and below Constitutional: Constitutional: Reports no additional constitutional complaints Eyes: Eyes: Reports no additional eye complaints ENT: Reports system reviewed and no additional complaints, except as documented Cardiovascular: Cardiovascular: Reports no additional cardiovascular complaints, Denies chest pain and Denies dyspnea Respiratory: Respiratory: Reports no additional respiratory complaints, Denies chest congestion, Denies cough and Denies dyspnea Gastrointestinal: Gastrointestinal: Reports no additional gastrointestinal complaints, Denies abdominal pain, Denies nausea and Denies vomiting Musculoskeletal: Musculoskeletal: Reports no additional musculoskeletal complaints Integumentary/Breasts: Skin/Breast: Reports system reviewed and no additional complaints, except as docu Neurologic: Reports as per HPI and Reports headache(s) Psychiatric: Psychiatric: Reports no additional psychiatric complaints Allergic/Immunologic: Allergic/Immunologic: Reports no additional allergic/immunologic complaints PMFSH Past Medical History Medical History Anxiety Bronchitis Depression Emphysema lung Right arm fracture surgical repair right radius fracture Surgical History Surgical History History of dilatation and curettage Family History Family History Sibling Patient's sister is in good health Patient's brother is in good health Father Family history of malignant neoplasm Patient's father is Mother Family history of diabetes mellitus in first degree relative Family history of heart disease in male family member before age 55 Other Diabetes mellitus Family history of tuberculosis Social History Social History Smoking packs per day: 1 Smoking cigarettes per day: 20.0 Years smoked: 25 Smoking pack-years: 25.00 Smoking status: Current every day smoker Tobacco type: cigarettes Alcohol intake: current Drinks per week: 1 Alcohol use details: social Substance use: current Substance use type: marijuana Last use: daily Living arrangements: with family Gender identity (if verbalized by the patient): Female Spiritual care concerns: No Comments At the time of my signature, I reviewed and agree with the nursing past medical, surgical, social, and family history. There is no relevant family history pertinent to the patient complaint. Exam Const: General: cooperative, healthy appea
== END 2023-01-08 19:58 | disposition home or self-care (01) ==
PROVIDERS: Emergency Provider Nurse Practitioner; PCP Physician Assistant
DX: R51.9 Headache, unspecified (principal); J43.9 Emphysema, unspecified; F17.210 Nicotine dependence, cigarettes, uncomplicated; Z79.899 Other long term (current) drug therapy
CPT/HCPCS: 99211; G0463

== ENCOUNTER 2023-02-02 16:10 | Emergency (ER) | payer OTHER, SELFPAY ==
--- NOTE | ~2023-02-02 | XR_ITS ---
EXAMINATION: 1. XR hand RT min 3V 2. XR wrist RT min 3V DATE: 02/02/2023 16:39 INDICATION: Right hand injury and pain. TECHNIQUE: 3 views of right hand and 4 views of right wrist were obtained. COMPARISON: None. FINDINGS: RIGHT WRIST: Bone alignment is normal. There is a nondisplaced oblique fracture of base of fifth meta carpal. There is mild osteoarthritis of first carpometacarpal joint. RIGHT HAND: Bone alignment is normal. The interphalangeal joints are normal. IMPRESSION: 1. Nondisplaced oblique fracture of base of fifth metacarpal. Reviewed, dictated and finalized at location A. IGLAS FORMER IMPRESSION: 1. Nondisplaced oblique fracture of base of fifth metacarpal.
[2023-02-02 16:12] VITALS: BP 154/103; PULSE 99; RESP 18; TEMP 36; O2SAT 99
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
[2023-02-02] MEDS: ACETAMINOPHEN 500 MG TABLET 1000 MG PO (19:08)
[2023-02-02] MEDS: IBUPROFEN 400 MG TABLET 800 MG PO (19:08)
[2023-02-02 20:09] VITALS: BP 132/90; PULSE 72; RESP 15; O2SAT 99
== END 2023-02-02 20:10 | disposition home or self-care (01) ==
PROVIDERS: Emergency Provider Physician Assistant; PCP Physician Assistant
DX: S62.346A Nondisplaced fracture of base of fifth metacarpal bone, right hand, initial encounter for closed fracture (principal); J43.9 Emphysema, unspecified; F41.9 Anxiety disorder, unspecified; F32.A Depression, unspecified; F17.210 Nicotine dependence, cigarettes, uncomplicated; V49.49XA Driver injured in collision with other motor vehicles in traffic accident, initial encounter
CPT/HCPCS: 29125; 73110; 73130; 99284; A4565; A9270

== ENCOUNTER 2023-02-18 09:47 | Outpatient (CLI) | payer OTHER, SELFPAY ==
--- NOTE | ~2023-02-18 | XR_ITS ---
CORRECTED REPORT Ordering/attending doctor [place] [facility] [place] This report was recreated on 02/25/23. Original report was ING MANAGER Right Hand Technique: PA, oblique, and lateral views were obtained. Clinical History: Fifth metacarpal fracture COMPARISON: 02/02/2023 Findings: Fractured the base of fifth metacarpal is essentially unchanged from prior exam. Overlying cast obscures fine bony detail. No new fracture or dislocation seen. Joint spaces are preserved. Soft tissues are unremarkable. Impression: No significant interval change in fracture at the base of the fifth metacarpal. Reviewed, dictated and finalized at location M. ING MANAGER MTDD Impression: No significant interval change in fracture at the base of the fifth metacarpal.
--- NOTE | ~2023-02-18 | XR_ITS ---
CORRECTED REPORT Ordering/attending doctor corrected [facility] [place] 02/25/23 This report was recreated on 02/25/23. Original report was F TRAINER EXAMINATION:[id number] DATE: 02/18/2023 10:06 INDICATION: Neck pain TECHNIQUE: AP, lateral, and odontoid views of the cervical spine are provided. COMPARISON: None FINDINGS: Alignment is normal. The odontoid process is intact. No fracture is identified. Vertebral body heights and disk spaces are normal. Prevertebral soft tissues are normal. Small degenerative osteophytes project from the anterior endplates of multiple vertebral bodies. There is multilevel mild facet and uncovertebral joint osteoarthritis. IMPRESSION: 1. Mild cervical spondylosis without acute findings. Reviewed, dictated and finalized at location B. F TRAINER MTDD
== END 2023-02-18 09:48 | disposition home or self-care (01) ==
PROVIDERS: PCP Physician Assistant; Visit Provider Physician Assistant
DX: Z12.31 Encounter for screening mammogram for malignant neoplasm of breast (principal); M43.02 Spondylolysis, cervical region; S69.91XA Unspecified injury of right wrist, hand and finger(s), initial encounter; V49.9XXA Car occupant (driver) (passenger) injured in unspecified traffic accident, initial encounter
CPT/HCPCS: 72040; 73130

== ENCOUNTER 2023-03-10 09:43 | Outpatient (CLI) | payer OTHER, SELFPAY ==
--- NOTE | ~2023-03-10 | XR_ITS ---
Right Hand Technique: PA, oblique, and lateral views were obtained. Clinical History: Metacarpal fracture COMPARISON: 02/18/2023 Findings: Fracture the base of fifth metacarpals essentially unchanged from prior exam. Possible mini mal interval healing. Overlying cast obscures fine bony detail. No new fracture or dislocation seen. Soft tissues are unremarkable. Impression: Possible minimal progressive interval healing of fracture at the base the fifth metacarpal. Osseous a lignment is unchanged. Reviewed, dictated and finalized at location . ICAL CARE NURSE PRACTITIONER Impression: Possible minimal progressive interval healing of fracture at the base the fifth metacarpal. Osseous alignment is unchanged.
== END 2023-03-10 09:44 | disposition home or self-care (01) ==
PROVIDERS: PCP Physician Assistant; Visit Provider Plastic Surgery
DX: S62.319D Displaced fracture of base of unspecified metacarpal bone, subsequent encounter for fracture with routine healing (principal); X58.XXXD Exposure to other specified factors, subsequent encounter
CPT/HCPCS: 73130

== ENCOUNTER 2023-05-27 15:00 | Outpatient (RCR) | payer OTHER, SELFPAY ==
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
--- NOTE | 2023-03-04 10:59 | OPREHPOC ---
Outpatient Therapy Plan of Care This is a Multidisciplinary Plan of Care that may contain components documented by all disciplines (PT, OT, and ST.) PT Problem 1 PT Problem #1 Knowledge Deficit PT Goal 1 Goal [place] with HEP Target Visit 4 PT Problem 2 PT Problem #2 Pain PT Goal 1 Goal Reports no cervical pain greater than 1/10 consistently with work related activity and sleeping. Target Visit 4 PT Problem 3 PT Problem #3 Impaired Range of Motion PT Goal 1 Goal Improve chana cervical rotation ROM to 70 degrees to eliminate soft tissue restriction and improve functional ROM Target Visit 8 PT Goal 2 Goal Improve chana cervical sidebending to 40 degrees to eliminate muscle restriction for improved functiona mobility PT Problem 4 PT Problem #4 Impaired Strength PT Goal 1 Goal Improve chana shoulder flexion strength to 4+/5 to improve lifting ability without pain Target Visit 8
--- NOTE | 2023-03-06 15:32 | PCPTNOTE ---
pt was 15 min late for appt; she did call and let us know;
--- NOTE | 2023-03-30 10:17 | PTOPPROG ---
Assessment and note entered by Dion Nuñez, PT Evaluation Information Assessment Status Progress Diagnosis Cervicalgia, L Piriformis syndrome Onset 02/02/23 Subjective Information Reports that the neck is doing remarkably better. She still has some weakness in her shoulders. She is more concerned with her low back at this time. Having a lot of trouble sitting at her desk and as the day goes on. She is still having a a little trouble sleeping and taking melatonin to supplement. Pain in back is non radiating at this time just in back and glute. Assessment PT Clinical Summary Patient has met nearly all cervical goals at this time and is reflecting significant improvement. Assessment of low back indicates signs and symptoms consistent with discogenic radiculopathy. We will transition focus to core stabilization, hip mobility, and hip disassociation. Plan of Care Interventions Electrical Stimulation,Hot Pack/Cold Pack,Manual Therapy,Neuro Re-education,Therapeutic Activities, Therapeutic Exercise PT Services Indicated Yes Treatment Frequency and 1-2x/week for 5 visits Duration These treatments will address the objective and functional deficits as defined above. The patient will be advanced safely and appropriately in order for the patient to progress towards his/her prior level of function. Additional exercises will be introduced and as well as a comprehensive home exercise program upon discharge, if needed, ?to ensure carryover of functional gains achieved in the clinic. This treatment plan has been reviewed and agreement upon by the patient.
--- NOTE | 2023-03-30 10:17 | OPREHPOC ---
Outpatient Therapy Plan of Care This is a Multidisciplinary Plan of Care that may contain components documented by all disciplines (PT, OT, and ST.) PT Problem 1 PT Problem #1 Knowledge Deficit PT Goal 1 Goal [place] with HEP Target Visit 4 Progress Met PT Goal 2 Goal Report lumabr back pain no greter than 2/10 after 30 minutes of seated work activity Target Visit 12 PT Problem 2 PT Problem #2 Pain PT Goal 1 Goal Reports no cervical pain greater than 1/10 consistently with work related activty and sleeping. Target Visit 4 Progress Met PT Problem 3 PT Problem #3 Impaired Range of Motion PT Goal 1 Goal Improve chana cervical rotation ROM to 70 degrees to eliminate soft tissue restriction and improve functional ROM Target Visit 8 Progress Partially Met Comment Much improved. Minor lack PT Goal 2 Goal Improve chana cervical sidebending to 40 degrees to eliminate muscle restriction for improved functional mobility Progress Met PT Problem 4 PT Problem #4 Impaired Strength PT Goal 1 Goal Improve chana shoulder flexion strength to 4+/5 to improve lifting ability without pain Target Visit 8 Progress Met PT Goal 1 Goal Demonstrate negative slump test bilaterally indicating reduced lumbar sciatic provocation Target Visit 12 PT Goal 2 Goal Improve chana hip abduction strength to 4+/5 to improve lateral pelvic stability with ADLs Target Visit 12
--- NOTE | 2023-04-09 09:22 | PCPTNOTE ---
Pt cancelled due to illness.
--- NOTE | 2023-05-11 15:54 | PTOPPROG ---
Assessment and note entered by Dion Nuñez, PT Evaluation Information Assessment Status Progress Diagnosis Cervicalgia, L Piriformis syndrome Onset 02/02/23 Subjective Information Reports that overall she feels about the same as she did at last reassessment. Neck is overall still better but back is achy and sore, increased with activity. No concerns at this time with current HEP she has to address. If she is on her feet for a long time she continues to be significantly stiff and sore. Pain into hip is overall better but still significant in back. Feels she has seen some benefit form therapy and would like to continues as she feel she could still use guidance in strengthening and body mechanics. Assessment PT Clinical Summary Patient has made excellent consistent progress with cervical mobility and strength at this time. She continues to demonstrate back pain with functional motion including lifting, walking, and squatting. We have continued to emphasize hip disassociation and mobility with transition to strength to ensure group home success and pain relief. Will benefit from continuation of therapy to address these deficits and progress core strength. Plan of Care Interventions Electrical Stimulation,Hot Pack/Cold Pack,Manual Therapy,Neuro Re-education,Therapeutic Activities, Therapeutic Exercise PT Services Indicated Yes Treatment Frequency and 1x/week for 4 visits Duration These treatments will address the objective and functional deficits as defined above. The patient will be advanced safely and appropriately in order for the patient to progress towards his/her prior level of function. Additional exercises will be introduced and as well as a comprehensive home exercise program upon discharge, if needed, ?to ensure carryover of functional gains achieved in the clinic. This treatment plan has been reviewed and agreement upon by the patient.
--- NOTE | 2023-05-11 15:54 | OPREHPOC ---
Outpatient Therapy Plan of Care This is a Multidisciplinary Plan of Care that may contain components documented by all disciplines (PT, OT, and ST.) PT Problem 1 PT Problem #1 Knowledge Deficit PT Goal 1 Goal [place] with HEP Target Visit 4 Progress Met PT Goal 2 Goal Report lumbar back pain no greater than 2/10 after 30 minutes of seated work activity Target Visit 16 Progress Not Met PT Problem 2 PT Problem #2 Pain PT Goal 1 Goal Reports no cervical pain greater than 1/10 consistently with work related activty and sleeping. Target Visit 4 Progress Met PT Problem 3 PT Problem #3 Impaired Range of Motion PT Goal 1 Goal Improve chana cervical rotation ROM to 70 degrees to eliminate soft tissue restriction and improve functional ROM Target Visit 8 Progress Partially Met Comment Much improved. Minor lack PT Goal 2 Goal Improve chana cervical sidebending to 40 degrees to eliminate muscle restriction for improved functiona mobility Progress Met PT Problem 4 PT Problem #4 Impaired Strength PT Goal 1 Goal Improve chana shoulder flexion strength to 4+/5 to improve lifting ability without pain Target Visit 8 Progress Met PT Goal 1 Goal Demonstrate negitive slump test bilaterlaly indicating reduced lumbar sciatic provocation Target Visit 16 Progress Partially Met PT Goal 2 Goal Improve chana hip abduction strengh to 4+/5 to improve lateral pelciv stabiity with ADLs Target Visit 16 Progress Partially Met Comment Progressing
--- NOTE | 2023-05-27 15:18 | PCPTNOTE ---
Addendum entered by George Stearns 05/27/23 16:06: Pt. attended treatment. She entered the clinic 21 minutes late. Disregard previous note stating pt. did not show. Original Note: Mrs. Stone did not show for her scheduled appointment on this date. She failed to contact the clinic. George Stearns, MPT
--- NOTE | 2023-05-29 11:59 | PCPTNOTE ---
This treatment is being continued on visit number [id number]. Please see documentation on both accounts to view progress. Completed interventions, outcomes, and problems have been marked as Inactive to facilitate the copying of the Care plan routine for recurring accounts.
== END 2023-05-29 09:28 | disposition home or self-care (01) ==
LOC: ANHPT 15:00
PROVIDERS: PCP Physician Assistant; Visit Provider Physician Assistant
DX: M54.2 Cervicalgia (principal)
CPT/HCPCS: 97014; 97110; 97140; 97161; 97530; G0283

== ENCOUNTER 2023-06-24 08:00 | Outpatient (RCR) | payer OTHER, SELFPAY ==
--- NOTE | 2023-05-29 11:58 | PCPTNOTE ---
This treatment is being continued from visit number [id number]. Please see documentation on both accounts to view progress. Completed interventions, outcomes, and problems have been marked as Inactive to facilitate the copying of the Care plan routine for recurring accounts.
--- NOTE | 2023-06-24 08:35 | PTOPDC ---
Assessment and note entered by George Stearns Evaluation Information Assessment Status Discharge Diagnosis cervicalgia, L piriformis syndrome Onset 02/02/23 Subjective Information Pt. reports that she has no neck pain today. She reports having some stiffness in the neck, but nothing intense. She reports that if she is bent over for long periods of time she will have some pain, but it will subside with rest. She reports that her hip/buttock pain has totally resolved. She reports that she can now sit for longer periods of time and notices she can now reach to the floor with bending forward. She reports she will continue with exercise and is ready for discharge. Reported Pain Level Pain Score 0: Self Report Assessment PT Clinical Summary Pt. has met all goals established at the initial evaluation. She is independent with a comprehensive HEP and will be discharged from our care at this time. Plan of Care PT Services Indicated No
== END 2023-06-24 10:28 | disposition home or self-care (01) ==
LOC: ANHPT 08:00
PROVIDERS: PCP Physician Assistant; Visit Provider Physician Assistant
DX: M54.2 Cervicalgia (principal); M54.32 Sciatica, left side
CPT/HCPCS: 97110; 97140

== ENCOUNTER 2023-07-29 08:20 | Outpatient (CLI) | payer OTHER, SELFPAY ==
--- NOTE | ~2023-07-29 | NM_ITS ---
EXAM: NM gastric emptying study DATE: 07/29/2023 13:42 INDICATION: Gaseous abdominal distention TECHNIQUE: A gastric emptying study was performed using the methodology of Eufemia BAKER, et al. J Nucl Med 2007; 48:568-572. The patient was given a meal consisting of 2 scrambled eggs labeled with 0.917 mCi Tc-99m sulfur colloid, 2 slices of toast, two packages of jam, and approximately 120 mL of water . Simultaneous anterior and posterior 1-min images of the abdomen were obtained with the patient supi ne at multiple time points over a total period of 4 hours. The geometric mean of anterior and posteri or views was determined, and the percentage retention was calculated for each time point. COMPARISON: None. FINDINGS: Gastric retention of the radiotracer-labeled meal was 46%, 20%, and 9% at the 1-hour, 2-hour, and 4-h our time points, respectively. With this technique, apparent rapid gastric emptying is suggested by < 30% gastric retention at 1 hour. Delayed gastric emptying is defined by gastric retention of >90% at 1 hour, >60% retention at 2 hours, or >10% retention at 4 hours. IMPRESSION: 1. Normal gastric emptying. Reviewed, dictated and finalized at location A. IMPRESSION: 1. Normal gastric emptying.
== END 2023-07-29 08:21 | disposition home or self-care (01) ==
PROVIDERS: PCP Physician Assistant; Visit Provider Nurse Practitioner Family
DX: R68.81 Early satiety (principal); R14.0 Abdominal distension (gaseous)
CPT/HCPCS: 78264; A9541

== ENCOUNTER 2023-12-22 08:29 | Emergency (ER) | payer SELFPAY ==
[2023-12-22 08:37] VITALS: BP 133/81; PULSE 88; RESP 16; TEMP 36.2; O2SAT 99
--- NOTE | 2023-12-22 08:39 | ED.BACK ---
HPI - Back Pain/Injury General Chief Complaint: Back Pain/Injury Stated Complaint: Back Pain Time Seen by Provider: 12/22/23 08:40 Source: patient, RN notes reviewed and old records reviewed Mode of arrival: ambulatory Limitations: no limitations History of Present Illness HPI Narrative: Patient presents with complaints of lower back pain. She reports a history of degenerative disc disease, states that she has gone to physical therapy for pain similar to what she is now experiencing in the past. She denies any injury or trauma. She denies any urinary symptoms. She denies any fever, chills, sweats. She has been taking Tylenol and ibuprofen intermittently for her symptoms, admits she has not taken anything for her symptoms today. Says that she tried to do physical therapy exercises last night was having difficulty remembering them due to pain. Says that pain begins in the low back, radiates to the right hip. States pain is aggravated by walking and sitting. Relief by lying down. Denies any numbness or tingling, no loss of bladder or bowel. Related Data Home Medications Medication Instructions Recorded Confirmed levonorgestrel 21 mcg/24 hr (up to 1 device intrauterine ONCE 09/13/19 12/22/23 8 years) 52 mg intrauterine device (Mirena) Allergies Allergy/AdvReac Type Severity Reaction Status Date / Time codeine Allergy Intermediate Rash Verified 12/22/23 08:44 aspirin Allergy Unknown Unknown Verified 12/22/23 08:44 erythromycin base Allergy Unknown Unknown Verified 12/22/23 08:44 Review of Systems Review of Systems: All systems reviewed & are unremarkable except as noted in HPI and below Constitutional: Constitutional: Reports no additional constitutional complaints ENT: Reports system reviewed and no additional complaints, except as documented Cardiovascular: Cardiovascular: Reports no additional cardiovascular complaints Respiratory: Respiratory: Reports no additional respiratory complaints Gastrointestinal: Gastrointestinal: Reports no additional gastrointestinal complaints Musculoskeletal: Musculoskeletal: Reports no additional musculoskeletal complaints, Reports as per HPI, Reports abnormal gait and Reports back pain Neurologic: Denies Sensory deficit (Neuro), Denies tingling, Denies paresthesias and Denies weakness PMFSH Past Medical History Medical History Abdominal bloating Anxiety Bronchitis Depression Early satiety Emphysema lung Right arm fracture surgical repair right radius fracture Tobacco use Surgical History Surgical History History of dilatation and curettage Family History Family History Sibling Patient's sister is in good health Patient's brother is in good health Father Family history of malignant neoplasm Patient's father is Mother Family history of diabetes mellitus in first degree relative Family history of heart disease in male family member before age 55 Other Diabetes mellitus Family history of tuberculosis Social History Social History Smoking packs per day: 1 Smoking cigarettes per day: 20.0 Years smoked: 25 Smoking pack-years: 25.00 Smoking status: Current every day smoker Tobacco type: cigarettes Alcohol intake: current Drinks per week: 1 Alcohol use details: social Substance use: current Substance use type: marijuana Last use: daily Lack of Transportation: No Lack of Food: Sometimes True Current Housing: I Have Housing Concerned About Future Housing: No Difficulty Paying Gas/Electric Bills: No Difficulty Paying for Meds: No Currently Unemployed: No Education: Associate Degree Difficulty w/ Childcare or Family Care: No Living arrangements: with family Gender identity (if verbalized by the patient): Female Sm[place]
[2023-12-22] MEDS: predniSONE 20 MG TABLET 60 MG PO (08:58)
== END 2023-12-22 09:08 | disposition home or self-care (01) ==
PROVIDERS: Emergency Provider Nurse Practitioner Family; PCP Physician Assistant
DX: S39.012A Strain of muscle, fascia and tendon of lower back, initial encounter (principal); X58.XXXA Exposure to other specified factors, initial encounter; J43.9 Emphysema, unspecified; F17.210 Nicotine dependence, cigarettes, uncomplicated; F12.90 Cannabis use, unspecified, uncomplicated
CPT/HCPCS: 99213; G0463; J7512

== ENCOUNTER 2024-06-16 16:43 | Emergency (ER) | payer OTHER, SELFPAY ==
--- OUTSIDE RECORDS SUMMARY | 2024-06-16 16:46 | XMS_ITS | Data Portability ---
Author Organization [facility] [place] Address [address] [place] [address] Care Team Providers Care Circular Knitter Helper Name Role Phone JAMES NAZARIO Primary Care Provider Assessment Encounter Date Assessment Date Assessment LastModified by Organization Details LastModified Time 11/04/2019 11/04/2019 Annual gynecological exam performed. Patient will come back in a year unless there are new symptoms. [email or web address] Not available 11/04/2019 12:28:14 05/04/2020 05/04/2020 Additional precautionary measures were taken to minimize potential exposure to the Covid-19 virus during this patient s visit, including available hand assistant grocery upon arrive, temperature check and being asked a series of screening questions. All staff wore face coverings during this encounter, as well as provided additional cleaning and sanitizing of all surfaces, including countertops, pens, chairs, door handles, light switches, etc, prior to and following the patient s visit. noris Not available 05/04/2020 15:03:52 09/18/2021 09/18/2021 Annual gynecological exam performed. Patient will come back in a year unless there are new symptoms. Suggest Calcium with Vitamin D if not eating in diet. Patient advised to get annual flu shot. Recommend yearly physicals and preform monthly breast exams. Genetic testing is available for patients with family history of cancer. Engage in safe sexual practices, use condoms. Encouraged to have daily exercise. Avoid tobacco and illicit drugs, moderation of alcohol. If BMI greater than 25 dietary consult advised. If you have any questions please call or email. mammogram order given noris Not available 09/18/2021 16:52:59 09/26/2022 09/26/2022 Annual gynecological exam performed. Patient will come back in a year unless there are new symptoms. [email or web address] Not available 09/26/2022 09:10:05 Plan of Treatment Reminders Order Date Submit Date Provider Last Modified By Organization Details Last Modified Time Details Appointments [facility] 2024 03:30P M ROLANDA BRADLEY, PREVENTIVE MAINTENANCE ENGINEER Not available Not available Not available Lab urinalysi s, dipstick 2019 020 [email or web address] [place], [facility] [address], [place], [address], 12/30/2019 21:36:21 Referral None recorded. Procedures None recorded. Surgeries None recorded. Imaging None recorded. Medication Orders None recorded. Patient TargetsNo targets recorded. Patient Instructions Encounter Date Encounter Id Patient Instructions Last Modified By Organization Details Last Modified Time 11/04/2019 [id number] Suggest Calcium with Vitamin D if not eating in diet. Patient advised to get annual flu shot. Recommend yearly physicals and preform monthly breast exams. Genetic testing is available for patients with family history of cancer. Engage in safe sexual practices, use condoms. Encouraged to have daily exercise. Avoid tobacco and illicit drugs, moderation of alcohol. If BMI greater than 25 dietary consult advised. If you have any questions please call or email. plan removal and reinsertion of IUD in June 2020 Not available 11/04/2019 12:44:22 05/04/2020 [id number] f/u one month iu d check Not available 05/04/2020 15:03:59 Reason for Referral None Reported. Results Created Date Observation Date Name Description Value Unit Range Abnormal Flag Note LastModifiedBy Organization Detail LastModifiedTime 11/04/19 20 11/07/2019 pap, LB Pap test thin prep Negati ve for Intrae pithel ial Lesion or Malign hcantale normal ACCES HÉCTOR #: [id number] Sourc e: Cervi yari/E ndoce rvica l LMP: 2009 Date Taken : 11/03 Speci men Type: ThinP rep Vial Date Repor lizbet: 2019 Clini yari Data: Cytot ech: Kaitl in M. Dodge , CT( CP) Date Repor lizbet: 2019 Speci men Adequ acy: Satis facto ry for evalu ation Endoc ervic al/tr ansfo rmati on zone compo nent prese nt Gener al Categ oriza tion: NEGAT MICHELLE FOR INTRA EPITH ELIAL RANI N OR MALCESILIA SIDHU This speci men has been lalo zed by the ThinP rep Imagi ng Syste m, an inter activ e compu ter syste m which cm ts the lab in the lilianae cristina of ThinP rep Pap Test slide s. Follo wing imagi ng, the slide was revie wed by a Cytot echno logis t and/o r Patho logis t. D N A A S S A Y S R E P O R T TEST NAME RESUL TS ----- ---- ----- -- HPV High Risk Sara ayala (TMA) ThinP rep Vial The human papil lomav irus (HPV) High Risk Sara ayala is an FDA-a pprov ed in-vi tro ampli fied nucle ic acid test for the quali tativ e detec tion of E6/E7 viral mRNA. Resul ts shoul d be corre lated with patie nt prese ntati on, histo ry, cervi yari cytol ogy and other clini yari and labor atory findi ngs. See https ://Space Pencil/s ites/ defau lt/fi les/2 018-0 3/AW- 07033 _002_ 01.pd f for furth er infor mated n. Test perfo rmed by [facility], d/b/a Brenda ramsay, [address], [place] [address] , You Landis ra, DO, Labor atory Direc tor. HPV High Risk *HPV NOT DETEC LIZBET (TYPE S 16, 18, 31, 33, 35, 39, 45, 51, 52, 56, 58, 59, 66, 68) *HPV: The human papil lomav irus (HPV) High Risk Sara ayala is an FDA-a pprov ed in-vi tro ampli fied nucle ic acid test for the quali tativ e detec tion of E6/E7 viral mRNA. [facility] shoul d be corre lated with patie nt prese ntati on, histo ry, cervi yari cytol ogy and other clini yari and labor atory findi ngs. See https ://Jangl SMS wShopSavvy/s kashmires/ alex lt/fi les/2 018-0 3/AW- 24436 _002_ 01.pd f for furth er infor jacob n. Test [facility]fo rmed by [facility] d/b/a [facility], [address], [place] [address] , You Landis ra, DO, Labor atory Dire tor. End of t Techn ical servi abel provi ded by [facility], d/b/a [facility], [address] [place] [address] Milind Vee MD, [facility] [employer] Dire tor. Case revie wed and diagn osis rende red at [facility], d/b/a [facility], [address] [place] [address] Milind Vee MD, [facility] [employer] D[employer]. CONFI DENTI AL Not Available [facility] ([facility]) [address], [place], [address], 11/07/2019 14:07:20 11/04/19 20 11/05/2019 HPV DNA, high- risk HPV high risk NOT DETECT ED normal Not Available [facility] ([facility]) [address], [place], [address], 11/07/2019 14:07:21 12/30/19 20 12/30/2019 urina lysis , dipst ick Leukocytes neg Not Available Iliana whalen [address], [place], [address], 12/30/2019 10:26:24 12/30/1926 1212/30/2019 urina lysis , dipst ick Nitrite neg Not Available [place] [address], [place], [address], 12/30/2019 10:26:24 12/30/19 20 12/30/2019 urina lysis , dipst ick Ketone neg Not Available [place] [address], [place], [address], 12/30/2019 10:26:24 05/04/19 21 05/04/2020 pregn chantale test, urine HCG negati ve Not Available [place] [address], [place], [address], 05/04/2020 14:54:14 09/19/19 22 09/18/2021 IMAGE GUIDE D PAP AND HPV REGAR DLESS image guided Pap, HPV regardless of Pap result SEE RESULT S BELOW CASE REPOR T: Cytol ogy Gynec ologi yari Repor t Case: [id number] Autho kaylen g Provi maribell: Valeria Hernandez NP Colle cted: 09/18 1640 Order ing Locat ion: [place] [facility] Recei lance: 09/19 0151 First Scree n: Rona Mckeon ret, CT Speci men: Scree cristina Pap - Image d, Cervi x STATE MENT OF ADEQU ACY: Satis facto ry for evalu ation Trans forma tion zone compo nent prese nt FINAL DIAGN OSIS: Negat michelle for Intra epith elial Lesed ayala or Torin sidhu (NIL) . Amy calvo marc d by Rona Mckeon ret, CT on 2021 at 9:13 AM ----- ----- ----- ----- ----- ----- ----- ----- ----- ----- ----- ----- ----- ----- ----- ----- ----- ---- HPV RESUL TS: HPV mRNA E6/E7 : No HPV mRNA Detec lizbet NOTE: This high risk HPV mRNA assay detec ts fourt een high- risk HPV types (16, 18, 31, 33, 35, 39, 45, 51, 52, 56, 58, 59, 66, 68) witho ut diffe renti ation . COMME NT: Note: This speci men was revie wed by a Cytot echno logis t and/o r Patho logis t (as indic ated in this repor t) after evalu ation using the Thinp rep Imagi ng Syste m. CLINI YARI INFOR MATIO N: Menst rual Statu s: LMP (if appli cable ): Clini yari Histo ry/Pr eviou s Pap: Type of Neopl letha (if appli cable ): Signi fican t Clini yari Findi ngs: Other Histo ry: Hormo delmy (if appli cable ): PAP EDUCA DENITA L NOTE: The Pap Test is a scree cristina test with an inher ent false negat michelle rate. Liqui d-bas ed sampl ing may decre ase, but will not elimi heraclio, false negat michelle resul ts. A negat michelle resul t does not precl ude the prese nce and/o r devel opmen t of disea se, since the prese nce of abnor mal cells in the sampl e depen ds on the locat ion of the lesio n and sampl ing techn ique. Josef nued regul ar scree cristina is the best metho d of cance r preve ntion . If repor lizbet cytol ogic findi ng do not corre late with physi yari and/o r histo rical findi ngs, furth er inves tigat ion is recom hiro d, as clini lia brown nted. Not Available [facility] Infectious Disease [address] [place], [address], 09/23/2021 10:16:51 Result Notes None recorded. Problems Name Problem SNOMED Code Status Onset Date Resolution Date Notes Provider Name and Address Organization Details Recorded Time SNOMED CT Concept Completed 201705/04/2020 Anxiety disorder , unspecif ied;Prac renae ID: 0001 Rosa cadena [facility] 14:51:[address] Concept Completed 201705/04/2020 Encntr for clinical engineering director exam (general ) (routine ) w/o abn findings ;Practic e ID: 0001 Rosa cadena [facility] 14:51:29 Pelvic and perineal pain 312152029 Completed 201805/04/2020 Pelvic and perineal pain;Pra ctice ID: 0001 [facility] 14:51:17 Pregnanc y test negative [id number] Completed 201805/04/2020 Encounte r for pregnanc y test, result negative ;Practic e ID: 0001 Rosa Braswell [facility] 14:51:19 Insertio n of intraute rine contrace ptive device Completed 201505/04/2020 INSERTIO N OF IUD;Derrick rded Elsewher e: No Locat ion: [facility] S ource: EHR Pillow Filler rosalba: N Practi ce ID: 0001 Karl lable Time: 04:30:00 PM Rosa Braswell [facility] 14:51:15 Contrace ptive sheath status [id number] Completed 201505/04/2020 Encounte r for routine checking of IUD;Derrick rded Elsewher e: No Locat ion: [facility] S ource: EHR Pillow Filler rosalba: N Practi ce ID: 0001 Karl lable Time: 04:00:00 PM Rosa Braswell [facility] 14:51:10 Vaginola bial hernia Completed 201505/04/2020 Other specifie d noninfla mmatory disorder s of vagina;R ecorded Elsewher e: No [facility] EHR Pillow Filler rosalba: N Sumati ce ID: 0001 Karl lable Time: 11:00:00 AM Rosa French tammi [facility] 14:51:33 Syphilis test finding [id number] Completed 201505/04/2020 Encounte r for STD screenin g;Record ed Elsewher e: No Locat ion: [facility] N Sumati ce ID: 0001 Karl lable Time: 02:45:00 PM Rosa Braswell [facility] 14:51:[address] Concept Completed 201805/04/2020 Encntr for general adult medical exam w/o abnormal findings ;Recorde d Elsewher e: No Locat ion: [facility] S ource: EHR Pillow Filler rosalba: N Sumati ce ID: 0001 Karl lable Time: 02:45:00 PM Rosa French tammi [facility] 14:51:27 Removal of intraute rine device Completed 201505/04/2020 REMOVAL OF IUD;Derrick rded Elsewher e: No Locat ion: [facility] S ource: EHR Pillow Filler rosalba: N Sumati ce ID: 0001 Karl lable Time: 04:00:00 PM Rosa Braswell tammi [facility] 14:51:23 Infectio n screenin g Completed 201505/04/2020 Encounte r for screenin g for oth infec/pa rastc diseases ;Recorde d Elsewher e: No Locat ion: [facility] S ource: EHR Pillow Filler rosalba: N Practi ce ID: 0001 Karl lable Time: 02:45:00 PM Rosa cadena [facility] 14:51:13 Psychose xual counseli ng Completed 201505/04/2020 Sex counseli ng, unspecif ied;Prac renae ID: 0001 Rosa Braswell [facility], [facility] 1 14:51:21 Problem Notes None recorded. Procedures Surgical History Date Name Laterality Status Provider Name and Address Organization Details Recorded Time 3 Date of Last Mammogram completed Carina Brown [facility] 09/26/2022 09:12:17 2 Date of Last Pap Smear completed Rosa Braswell [facility] 09/18/2021 16:42:51 1 IUD Removal completed Valeria Moreno CNM [address], [place], [address], [facility] 05/04/2020 15:03:29 1 IUD Insertion completed Valeria Moreno CNM [address], [place], [address], [facility] 05/04/2020 15:03:36 9 Dilation and Curettage completed Rosa Braswell [facility] 05/04/2020 14:53:13 6 Dilation and Curettage completed Rosa Braswell [facility] 05/04/2020 14:53:09 3 Dilation and Curettage completed Rosa Braswell [facility] 05/04/2020 14:53:05 2 Dilation and Curettage completed Rosa Braswell [facility] 05/04/2020 14:53:01 Imaging Results None recorded. Procedure Notes None recorded. Medical Equipment None Reported. Allergies Allergen ID Allergen Name Allergen Category Reaction Reaction Severity Criticality Documentation Date Start Date Code Code System Note Provider Name and Address Organization Details Recorded Time 1860 codeine medicatio n Not available Not available Not available 11/04/2019 4740 RxNorm Rosa French [facility] [place] - [facility] 0 12:29:37 Medications Name Sig Start Date Stop Date Status Note LastModified by Organization Details LastModified Time cyclobenz aprine 10 mg tablet 12/29 completed Not Available Not Available Not Available amoxicill in 500 mg capsule 11/06 completed Not Available Not Available Not Available Mirena 21 mcg/24 hr (up to 8 years) 52 mg intrauter ine device Take by intraute rine route. 2015 active MIRENA INSERTED 1 AND WILL NEED REMOVED 6 Not Available Not Available Not Available buspirone 5 mg tablet take 1 tablet by oral route 3 times every day 05/04 completed Prescrib ed Elsewher e: Yes Loca tion: [facility] M odify By: elena carter DateTime : 02/11/20 18 02:30:00 PM Not Available Not Available Not Available Zyrtec-D 5 mg-120 mg tablet,ex tended release TAKE 1 TABLET BY MOUTH EVERY 12 HOURS NEEDED FOR NASAL CONGESTI ON 09/26 completed Not Available Not Available Not Available albuterol sulfate 2.5 mg/3 mL (0.083 %) solution for nebulizat ion active Not Available Not Available Not Available cetirizin e 10 mg tablet 12/29 completed Not Available Not Available Not Available azithromy calin 250 mg tablet 11/06 completed Not Available Not Available Not Available promethaz ine 12.5 mg tablet 12/29 completed Not Available Not Available Not Available prednison e 20 mg tablet TAKE 1 TABLET BY MOUTH ONCE DAILY 09/26 completed Not Available Not Available Not Available omeprazol e 40 mg capsule,d elayed release TAKE 1 CAPSULE BY MOUTH ONCE DAILY active Not Available Not Available No t Available doxycycli ne monohydra te 100 mg tablet TAKE 1 TABLET BY MOUTH TWICE DAILY 09/26 completed Not Available Not Available Not Available triamcino lone acetonide 0.1 % topical cream 09/26 completed Not Available Not Available Not Available bupropion HCl SR 100 mg tablet,12 hr sustained -release 12/29 completed Not Available Not Available Not Available amoxicill in 875 mg tablet 11/06 completed Not Available Not Available Not Available alprazola m 0.25 mg tablet TAKE 1 TABLET BY MOUTH ONCE DAILY NEEDED FOR 30 DAYS active Not Available Not Available No t Available Flagyl 500 mg tablet take 2 tablets at once 02/14 completed Prescrib ed Elsewher e: No [facility] By: smcyamil cmkinley DateTime : 12/26/19 16 12:10:28 PM Not Available Not Available Not Available cyanocoba earnest (vit B-12) 1,000 mcg/mL injection solution INJECT 1 ML SUBCUTAN EOUSLY 3 TIMES A WEEK 09/26 completed Not Available Not Available Not Available lisinopri l 10 mg tablet TAKE 1 TABLET BY MOUTH ONCE DAILY 09/26 completed Not Available Not Available Not Available nicotine 21 mg/24 hr daily transderm al patch APPLY 1 PATCH TOPICALL Y ONCE DAILY active Not Available Not Available No t Available buspirone 7.5 mg tablet TAKE 1 TABLET BY MOUTH ONCE DAILY FOR 30 DAYS 09/26 completed Not Available Not Available Not Available omeprazol e 20 mg capsule,d elayed release TAKE 1 CAPSULE BY MOUTH ONCE DAILY 09/26 completed Not Available Not Available Not Available methylpre dnisolone 4 mg tablets in a dose pack TAKE BY MOUTH DIRECTED ON INSIDE OF PACKAGE 09/18 completed Not Available Not Available Not Available albuterol sulfate HFA 90 mcg/actua tion aerosol inhaler INHALE 2 PUFFS BY MOUTH EVERY 4 HOURS active Not Available Not Available No t Available SSD 1 % topical cream APPLY TOPICALL Y TWICE A DAY, APPLY A 1.5MM THICKNES S 09/26 completed Not Available Not Available Not Available Vitamin D2 1,250 mcg (50,000 unit) capsule take 1 capsule by oral route every week 02/10 completed Prescrib ed Elsewher e: No Locat ion: [facility] odify By: elena carter DateTime : 07/18/19 17 02:39:07 PM Not Available Not Available Not Available fluticaso ne propionat e 50 mcg/actua tion nasal spray,jalen pension 12/29 completed Not Available Not Available Not Available naproxen 500 mg tablet 12/29 completed Not Available Not Available Not Available amoxicill in 875 mg-potass ium clavulana te 125 mg tablet 11/06 completed Not Available Not Available Not Available buspirone 15 mg tablet TAKE 1 TABLET BY MOUTH ONCE DAILY active Not Available Not Available No t Available Lexapro 10 mg tablet take 1 tablet by oral route every day 02/10 completed Prescrib ed Elsewher e: No Locat ion: [facility] M odify By: elena schmittunter DateTime : 03/16/19 04:00:00 PM Not Available Not Available Not Available nitrofura ntoin monohydra te/macroc rystals 100 mg capsule 12/29 completed Not Available Not Available Not Available buspirone 05/04 completed Not Available Not Available Not Available Xanax 05/04 completed Not Available Not Available Not Available Symbicort 160 mcg-4.5 mcg/actua tion HFA aerosol inhaler INHALE 2 PUFFS BY MOUTH TWICE DAILY 09/26 completed Not Available Not Available Not Available omeprazol e 20 mg tablet,de layed release 12/29 completed Not Available Not Available Not Available Space Chamber with Large Mask USE DIRECTED 09/26 completed Not Available Not Available Not Available BinaxNOW COVID-19 Ag Self Test kit Use as Directed on the Package 09/26 completed Not Available Not Available Not Available Vitals Date Recorded Body height Body mass index (BMI) Body weight Heart rate Systolic blood pressure Diastolic blood pressure Provider Name and Address Organization Details Last Updated DateTime 1 160.66 cm 27.8 kg/m2 10259.5 9 g 90 /min 124 mm[Hg] 86 mm[Hg] Rosa Braswell [facility] 1 14:50:30 Date Recorded Body height Body mass index (BMI) Body weight Systolic blood pressure Diastolic blood pressure Provider Name and Address Organization Details Last Updated DateTime 09/18/2021 160.66 cm 28.5 kg/m2 65979.96 g 131 mm[Hg] 85 mm[Hg] Rosa Braswell [facility] 2 16:42:17 Date Recorded Body height Body mass index (BMI) Body weight Systolic blood pressure Diastolic blood pressure Provider Name and Address Organization Details Last Updated DateTime 11/04/2019 160.66 cm 27.4 kg/m2 43533.41 g 130 mm[Hg] 86 mm[Hg] Rosa Braswell [facility] 0 12:29:26 Date Recorded Body height Body mass index (BMI) Body weight Provider Name and Address Organization Details Last Updated DateTime 09/26/2022 161.29 cm 28.4 kg/m2 48475.56 g Carina Brown [facility] 09/26/2022 09:10:16 Date Recorded Systolic blood pressure Diastolic blood pressure Provider Name and Address Organization Details Last Updated DateTime 09/26/2022 132 mm[Hg] 70 mm[Hg] Beata Tan [facility] [address], [place], [address], [facility] 09/26/2022 09:20:09 Date Recorded Body height Body mass index (BMI) Body weight Systolic blood pressure Diastolic blood pressure Provider Name and Address Organization Details Last Updated DateTime 12/30/2019 160.66 cm 27.4 kg/m2 24620.41 g 131 mm[Hg] 86 mm[Hg] Hermelinda Bueno [facility] 0 10:23:51 Social History Question Answer Notes LastModified by Organizat ion Details LastModified Time Tobacco Smoking Status Current Every Day Smoker Not Available [email or web address] 01/10/2020 03:28:11 What Is Your Level Of Alcohol Consumption? Occasional [id number] Information not available 01/10/2020 If You Are , What Was Your Level Of Alcohol Consumption Prior To ? None [email or web address] Information not available 05/04/2020 Are You Blind Or Do You Have Difficulty Seeing? No [email or web address] Information not available 05/04/2020 What Is Your Level Of Caffeine Consumption? Occasional [email or web address] Information not available 05/04/2020 In The 14 Days Before Symptom Onset, Have You Had Close Contact With A Laboratory-confir med COVID-19 While That Case Was Ill? No [email or web address] Information not available 05/04/2020 In The 14 Days Before Symptom Onset, Have You Had Close Contact With A Person Who Is Under Investigation For COVID-19 While That Person Was Ill? No [email or web address] Information not available 05/04/2020 Have You Been To An Area Known To Be High Risk For COVID-19? No [email or web address] Information not available 05/04/2020 Are You Deaf Or Do You Have Serious Difficulty Hearing? No Information not available 05/04/2020 What Type Of Diet Are You Following? REGULAR [email or web address] Information not available 05/04/2020 Do You Or Have You Ever Used E-cigarettes Or Vape? Current User Of Electronic Cigarettes [id number] Information not available 01/10/2020 What Was The Date Of Your Most Recent Tobacco Screening? 09/18/2021 [email or web address] Information not available 09/18/2021 Have You Ever Been Counseled For Unhealthy Alcohol Use? No [email or web address] Information not available 05/04/2020 Do You Use Your Seat Belt Or Car Seat Routinely? Yes [email or web address] Information not available 05/04/2020 Do You Have Smoke And Carbon Monoxide Detectors In Your Home? Yes [email or web address] Information not available 05/04/2020 Do You Or Have You Ever Used Smokeless Tobacco? Never Used Smokeless Tobacco [id number] Information not available 01/10/2020 How Much Tobacco Do You Smoke? 1 PPD 1 Pack A Day [id number] Information not available 01/10/2020 Do You Feel Stressed (tense, Restless, Nervous, Or Anxious, Or Unable To Sleep At Night)? [id number] [email or web address] Information not available 05/04/2020 Do You Use Any Illicit Or Recreational Drugs? No [email or web address] Information not available 05/04/2020 Do You Use Sunscreen Routinely? Yes Information not available 05/04/2020 Sex: Unknown Functional Status Question Answer Note LastModified by Organizat ion Details LastModified Time Do you have difficulty walking or climbing stairs? No [email or web address] Information not available 09/18/2021 Are you able to walk? YESWOREST Information not available 05/04/2020 Are you able to care for yourself? Yes [email or web address] Information not available 09/18/2021 Do you have difficulty dressing or bathing? No [email or web address] Information not available 09/18/2021 What is your exercise level? Occasional [id number] Information not available 01/10/2020 Mental Status None recorded. Family History Relationship Description Onset Age of this Age Resolved Age Notes LastModified by Organization Details LastModified Time Mother Diabetes mellitus [email or web address] Not available 11/06 11:03:23 Maternal Uncle Diabetes mellitus [email or web address] Not available 11/06 11:03:23 Paternal Aunt Malignant tumor of breast Not available 11/06 11:03:35 Notes:Maternal uncle: Diabet es mellitus Mother: Diabetes mellitus Medical History Condition Response Allergies (Food, seasonal, environmental ) Y Other Y Breast Cancer N Drug/Latex Allergies/Reactions Y Blood Transfusion N Dermatologic Disorders N Lung Disease N Defects or Inherited Disease N Breast Problem N Gestational Diabetes N Hematologic disorders N Anesthesia Complications N History of STI N Deep Vein Thrombosis N Polycystic ovary syndrome N Anxiety Disorder Y Autoimmune disease N Arthritis N Infertility N Polyps N Acid Reflux (GERD) Y History of abnormal pap N Cancer N Stroke N Varicosities N Neurologic/Epilepsy N Endometriosis N High Cholesterol N Headaches N Fibromyalgia N Kidney Disease N Heart Problems N Kidney or Bladder Problems N Thyroid Problems N GI Problems N Eating Disorder N Anemia N Art (IVF or FET) N Psychiatric Illness N Ovarian Cancer N Diabetes N Pulmonary (TB, Asthma) N Hepatitis/Liver Disease N No Past Medical History N Eczema N Urinary Tract Infection N Abuse/Domestic Violence N Asthma Y Trauma/Violence N Depression/ depression N Heart Disease N Pre-Eclampsia N Hypertension Y Osteoporosis N Thrombophilias N Gynecological History Statement/Question Response Date of Last Mammogram 03/09/2022 Date of LMP Sexually Active? Y STIs/STDs N Menses Monthly N Date of Last Pap Smear 09/18/2021 Sexual Problems? N Current Control Method IUD LMP Unknown Obstetrics History GPAL:G 6 P 2 0 4 2 Type Value Full Term 2 Spontaneous 4 Living 2 Total 6 Past Encounters Encounter ID Performer Location Encounter Start Date Encounter Closed Date Diagnosis/Indication Diagnosis SNOMED-CT Code Diagnosis ICD10 Code Diagnosis Note [id number] Valeria Moreno [facility] [address],[place] [address] 11/04/2019 12:04:25 11/04/2019 13:53:43 [id number] Valeria Moreno [facility] [address],[place] [address] 05/04/2020 14:26:10 05/04/2020 15:12:35 Insertion of intrauterine contraceptive device 87494500 Z30.430 Removal of intrauterine device 18387052 Z30.432 [id number] Shayne Julio MD [facility] [address],[place] [address] 12/30/2019 09:49:32 12/30/2019 12:18:05 Increased frequency of urination 414197120 R35.0 Pain in pelvis 74827078 R10.2 This patient is a 39-year-ol d female with pelvic pain. We have agreed to complete the evaluation with pelvic ultrasound . The patient will return after the pelvic ultrasound to discuss those findings and to develop a treatment plan. A comprehens michelle history and physical exam was performed today. We spent over 25 minutes face-to-fa ce. The patient was given precaution s. She will contact clinic if pelvic pain increases in frequency or intensity. Also notify clinic of any new symptoms associated with pelvic pain. She does not appear to have an acute pelvic infection today, but was asked to contact us Immediatel y with nausea, vomiting, fever, chills. [id number] Valeria Moreno [facility] [address],[place] [address] 09/18/2021 16:37:51 09/19/2021 17:12:57 Gynecologic examination [id number] Z01.419 [id number] [facility] [address],[place] [address] 09/26/2022 09:01:59 09/26/2022 09:54:13 Gynecologic examination 47443042 Z01.419 Suggested Calcium with Vitamin D 1200-1500m g daily. Patient advised to get an annual flu shot in the fall and she could obtain at [facility] or [facility] clinic. Also to obtain TDap vaccinatio n if you have not had one in the last 10 years. Recommend yearly mammograms . Encouraged monthly self breast exams. Encourage safe sexual practices, to use condoms and limit partners if not already in a monogamous relationsh ip. Engage in daily exercise of low impact aerobic exercise 45-60 minutes 4-5 times weekly. Avoid tobacco and illicit drugs as well as using moderation with alcohol intake less than 1-2 8 oz beverages daily. This lifestyle behavior pattern will lead to less health conditions and longer life span. If BMI greater than 25 weight watchers or dietary consult advised. All questions have been answered. Patient appears to understand informatio n, but if you have any questions please call or respond to this email. Pap/hpv sent STD Screen declined Genetic Screen discussed Colon Screen na Dexa Screen na Routine Labs PCPMammo wnl Mirena IUD prevents for up to 8 years, and also helps with heavy periods for up to 5 years in women who choose an IUD for control. Health Concerns Section Related Observation LastModified by Organization Detai ls LastModified Time None Recorded Concern Status LastModified by Organization Details LastModified Time None Recorded Advance Directives Directive None Recorded Payers Encounter Date Sequence Insurance Name Policy Number Policy Hernandez Covered Member ID Hernandez Member ID Guarantor Name 11/04/2019 1 [facility] (MEDICAID HMO) [id number] 0003 Moni Stone [id number] 12/30/2019 1 [employer] [facility] [facility] [place] ([place] [id number] 0003 Moni Stone [id number] 05/04/2020 1 [employer] [facility] [facility] [place] [id number] 0003 Moni Stone [id number] 09/18/2021 1 [employer] [facility] [place] [id number] 0003 Moni Stone [id number] 09/26/2022 1 [employer] [facility] [facility] [place] [id number] 0003 Moni Stone [id number] Notes Date Note Type Note Provider Name and Address Organization Details Recorded Time 11/04/2019 text/html Annual GYNReport ed bypatient.Notes:no cycles, no sbe fm hx of breast cancer happy with IUD would like another IUD when due Valeria E. [place], CNM [address], [place], [address], [facility] 11/04/2019 12:44:40 12/30/2019 text/html Beer-Pelvic PainReported bypatient.Location :bilateral; suprapubic Onset/Timin-4 weeks Duration:intermitt ent Quality:cramping; pressure increased with intercourse; improving Severity:mild; moderate Alleviating Factors:analgesics Aggravating Factors:none Associated Symptoms:no abdominal pain; no back pain; no chills; no constipation; no diarrhea; no vaginal discharge; no pain with urination Has IUD. Shayne Julio MD [address], [place], [address], [facility] 12/30/2019 11:11:25 05/04/2020 text/html Patient presents for IUD removal and reinsertion. reviewed risks including bleeding, infection, perforation and expulsion consent signed Valeria Moreno CNM [address], [place], [address], [facility] 05/04/2020 15:04:16 09/18/2021 text/html Annual GYNReport ed bypatient.Menstrua l cycle:Normal menses Urinary symptoms:No hematuria; No incontinence Vulva:No genital lesion Vagina:Normal vaginal discharge Breast:No breast pain; No breast lump; No nipple discharge Current Contraception:Sati sfied with current contraception; Intrauterine device (iud) Sexual complaints:No sexual complaints; No pain during intercourse; Normal libido Menopausal Symptoms:No menopausal symptoms; Normal vaginal lubrication Psychological symptoms:No depression; No anxiety; No PMDD Preventive measures:Encourage self breast examination; Encourage regular exercise; Encourage no tobacco use; Encourage regular mammograms starting age 40Notes:doing well with IUD, gone rafting a bunch this summer Valeria Moreno CNM [address], [place], [address], [facility] 09/18/2021 17:05:28 09/26/2022 text/html Annual GYNReport ed bypatient.History: no gynecologic complaints Menstrual cycle:Normal menses (Amenorrheic on IUD) Urinary symptoms:No hematuria; No incontinence Vulva:No genital lesion Vagina:Normal vaginal discharge Breast:No breast pain; No breast lump; No nipple discharge Current Contraception:Sati sfied with current contraception; Intrauterine device (iud) Sexual complaints:No sexual complaints; No pain during intercourse; Normal libido Menopausal Symptoms:No menopausal symptoms; Normal vaginal lubrication Psychological symptoms:No depression; No anxiety; No PMDD Preventive measures:Encourage self breast examination; Encourage regular exercise; Encourage no tobacco use; Encourage regular mammograms starting age 40; Followed with yearly pap smears; Mammogram performed within the past year Beata Tan HATTIE- [address], [place], [address], [facility] 09/26/2022 09:22:47 OBGyn Episode Ob Episode Information Episode Created Date Number of Fetuses Patient Bloodtype Patient rh Status Prepregnancy Weight lbs Domestic Partner Domestic Partner Phone Father Name Circular Stuffer Status 11/07/19 20 1 CLOSED Fetus Data First Name Last Name Admitted to NICU Weight (g) Sex Living Outcome Pediatric Complications Fetus ID Race Codes Race Delivery Type , Spontane ous 4142 Brian Calculation Initial Brian Date Initial Exam Date Initial Exam Provider Initial Ultrasound Date Last Menstrual Period Date Ultra Sound Weeks Gestation 0 Eighteen To Twenty Week Brian Update Ultra Sound Date Fundal Height At Umbil Quickening Date Ultra Sound Latest Weeks Gestation Final Brian Confirmed By Final Brian Confirmed Date Final Brian Date Ultra Sound Latest Days Gestation 0 0 Menstrual History Last Menstrual Date Menses Monthly On Bcp Conception Prior Menses Frequency Hcg Plus Date Menarche Onset Age Delivery Information Delivery Date Delivery Type Labor Anesthesia Weeks Gestation Incision Type Labor Labor Length Hrs Delivered By Post Complications Tubal Sterilization Discharge Date Comments 3 2002 miscarria ge Discharge Information Feeding Method Contraceptive Method Maternal HG B and HCT Levels Ob Episode Information Episode Created Date Number of Fetuses Patient Bloodtype Patient rh Status Prepregnancy Weight lbs Domestic Partner Domestic Partner Phone Father Name Circular Stuffer Status 11/07/19 20 1 CLOSED Fetus Data First Name Last Name Admitted to NICU Weight (g) Sex Living Outcome Pediatric Complications Fetus ID Race Codes Race Delivery Type , Spontane ous 4143 Brian Calculation Initial Brian Date Initial Exam Date Initial Exam Provider Initial Ultrasound Date Last Menstrual Period Date Ultra Sound Weeks Gestation 0 Eighteen To Twenty Week Brian Update Ultra Sound Date Fundal Height At Umbil Quickening Date Ultra Sound Latest Weeks Gestation Final Brian Confirmed By Final Brian Confirmed Date Final Brian Date Ultra Sound Latest Days Gestation 0 0 Menstrual History Last Menstrual Date Menses Monthly On Bcp Conception Prior Menses Frequency Hcg Plus Date Menarche Onset Age Delivery Information Delivery Date Delivery Type Labor Anesthesia Weeks Gestation Incision Type Labor Labor Length Hrs Delivered By Post Complications Tubal Sterilization Discharge Date Comments 2 2001 miscarria ge Discharge Information Feeding Method Contraceptive Method Maternal HG B and HCT Levels Ob Episode Information Episode Created Date Number of Fetuses Patient Bloodtype Patient rh Status Prepregnancy Weight lbs Domestic Partner Domestic Partner Phone Father Name Circular Stuffer Status 11/07/19 20 1 CLOSED Fetus Data First Name Last Name Admitted to NICU Weight (g) Sex Living Outcome Pediatric Complications Fetus ID Race Codes Race Delivery Type , Spontane ous 4145 Brian Calculation Initial Brian Date Initial Exam Date Initial Exam Provider Initial Ultrasound Date Last Menstrual Period Date Ultra Sound Weeks Gestation 0 Eighteen To Twenty Week Brian Update Ultra Sound Date Fundal Height At Umbil Quickening Date Ultra Sound Latest Weeks Gestation Final Brian Confirmed By Final Brian Confirmed Date Final Brian Date Ultra Sound Latest Days Gestation 0 0 Menstrual History Last Menstrual Date Menses Monthly On Bcp Conception Prior Menses Frequency Hcg Plus Date Menarche Onset Age Delivery Information Delivery Date Delivery Type Labor Anesthesia Weeks Gestation Incision Type Labor Labor Length Hrs Delivered By Post Complications Tubal Sterilization Discharge Date Comments 6 2005 miscarria ge Discharge Information Feeding Method Contraceptive Method Maternal HG B and HCT Levels Ob Episode Information Episode Created Date Number of Fetuses Patient Bloodtype Patient rh Status Prepregnancy Weight lbs Domestic Partner Domestic Partner Phone Father Name Circular Stuffer Status 11/07/19 20 1 CLOSED Fetus Data First Name Last Name Admitted to NICU Weight (g) Sex Living Outcome Pediatric Complications Fetus ID Race Codes Race Delivery Type 3118.44 5 M Full Term 4147 Vaginal Delivery Brian Calculation Initial Brian Date Initial Exam Date Initial Exam Provider Initial Ultrasound Date Last Menstrual Period Date Ultra Sound Weeks Gestation 0 Eighteen To Twenty Week Brian Update Ultra Sound Date Fundal Height At Umbil Quickening Date Ultra Sound Latest Weeks Gestation Final Brian Confirmed By Final Brian Confirmed Date Final Brian Date Ultra Sound Latest Days Gestation 0 0 Menstrual History Last Menstrual Date Menses Monthly On Bcp Conception Prior Menses Frequency Hcg Plus Date Menarche Onset Age Delivery Information Delivery Date Delivery Type Labor Anesthesia Weeks Gestation Incision Type Labor Labor Length Hrs Delivered By Post Complications Tubal Sterilization Discharge Date Comments 4 40 Discharge Information Feeding Method Contraceptive Method Maternal HG B and HCT Levels Ob Episode Information Episode Created Date Number of Fetuses Patient Bloodtype Patient rh Status Prepregnancy Weight lbs Domestic Partner Domestic Partner Phone Father Name Circular Stuffer Status 11/07/19 20 1 CLOSED Fetus Data First Name Last Name Admitted to NICU Weight (g) Sex Living Outcome Pediatric Complications Fetus ID Race Codes Race Delivery Type 2721.55 2 M Full Term 4146 Vaginal Delivery Brian Calculation Initial Brian Date Initial Exam Date Initial Exam Provider Initial Ultrasound Date Last Menstrual Period Date Ultra Sound Weeks Gestation 0 Eighteen To Twenty Week Brian Update Ultra Sound Date Fundal Height At Umbil Quickening Date Ultra Sound Latest Weeks Gestation Final Brian Confirmed By Final Brian Confirmed Date Final Brian Date Ultra Sound Latest Days Gestation 0 0 Menstrual History Last Menstrual Date Menses Monthly On Bcp Conception Prior Menses Frequency Hcg Plus Date Menarche Onset Age Delivery Information Delivery Date Delivery Type Labor Anesthesia Weeks Gestation Incision Type Labor Labor Length Hrs Delivered By Post Complications Tubal Sterilization Discharge Date Comments 0 37 Discharge Information Feeding Method Contraceptive Method Maternal HG B and HCT Levels Ob Episode Information Episode Created Date Number of Fetuses Patient Bloodtype Patient rh Status Prepregnancy Weight lbs Domestic Partner Domestic Partner Phone Father Name Circular Stuffer Status 11/07/19 20 1 CLOSED Fetus Data First Name Last Name Admitted to NICU Weight (g) Sex Living Outcome Pediatric Complications Fetus ID Race Codes Race Delivery Type , Spontane ous 4144 Brian Calculation Initial Brian Date Initial Exam Date Initial Exam Provider Initial Ultrasound Date Last Menstrual Period Date Ultra Sound Weeks Gestation 0 Eighteen To Twenty Week Brian Update Ultra Sound Date Fundal Height At Umbil Quickening Date Ultra Sound Latest Weeks Gestation Final Brian Confirmed By Final Brian Confirmed Date Final Brian Date Ultra Sound Latest Days Gestation 0 0 Menstrual History Last Menstrual Date Menses Monthly On Bcp Conception Prior Menses Frequency Hcg Plus Date Menarche Onset Age Delivery Information Delivery Date Delivery Type Labor Anesthesia Weeks Gestation Incision Type Labor Labor Length Hrs Delivered By Post Complications Tubal Sterilization Discharge Date Comments 01/01/200 9 2009 miscarria ge Discharge Information Feeding Method Contraceptive Method Maternal HG B and HCT Levels
--- OUTSIDE RECORDS SUMMARY | 2024-06-16 16:46 | XMS_ITS | Clinical Summary ---
Author Organization [facility] Address [address] [place] [address] Care Team Providers Care Gwot Ia/Ilo Intelligence Support Name Role Phone Unavailable Primary Care Provider Unavailabl e Social History Tobacco Use Types Packs/Day Years Used Date Smoking Tobacco: Never Assessed Comments Unknown Sex and Gender Information Value Date Recorded Sex Assigned at Not on file Legal Sex Female 6:54 PM CDT Gender Identity Not on file Sexual Orientation Not on file Plan of Treatment Health Maintenance Due Date Last Done Comments Cervical Cancer Screening Pa p Smear (Age 30 to 64) Every 3 Years 1980 Annual Physical 07/10/1983 Hepatitis C 1998 DTaP, Tdap and Td Vaccines ( 1 - Tdap) 07/10/1999 Hepatitis B Vaccines (1 of 3 - 19+ 3-dose series) 07/10/1999 Cervical Cancer Screening Pa p with HPV Testing (Age 30 to 64) Every 5 Years 2010 Cervical Cancer Screening with HPV 2010 Mammogram Screening 2020 COVID-19 Vaccine (2023-2 5 season) 2023 HPV Vaccines Aged Out No longer eligi ble based on patient's age to complete this topic Meningococcal B Vaccine Aged Out No l onger eligible based on patient's age to complete this topic Meningococcal Vaccine Aged Out No yolande marla eligible based on patient's age to complete this topic Pneumococcal Vaccine: Pediat rics (0 to 5 Years) and At-Risk Patients (6 to 64 Years) Aged Out No longer eligible b ased on patient's age to complete this topic RSV Immunizations Under 20 Months Aged Out No longer eligible based on patient's age to complete this topic
--- OUTSIDE RECORDS SUMMARY | 2024-06-16 16:46 | XMS_ITS | Clinical Summary ---
Author Organization [facility] Address [address] [place] [address] Care Team Providers Care Engineer Design [employer] Construction Name Role Phone Radha Curran PA-C Primary Care Provider Source Comments [facility],non-owned Affiliates and Associated Physician Practices is amultiple site organization consisting of ambulatory clinics and hospital sitesin [place], [place], [place] and [place]. This disclosure is being madepursuant to the Care Everywhere program and may not contain all information available regarding this patient. Last updated 17.[facility] Portr Allergies Active Allergy Reactions Criticality Noted Date Comments Aspirin Unknown Low 02/13/2020 Codeine Rash Medium 02/13/2020 Medications * Be aware that medications may not be up to date on this document. Alwaysverify current medications with the patient. Medication Sig Dispensed Refills Start Date End Date Status albuterol HFA (PROVENTIL;VENTOLIN; PROAIR) 108 (90 Base) MCG/ACT inhaler Inhale 2 (two) puffs by mouth Active ALPRAZolam (XANAX) 0.25 MG tablet TAKE 1 TABLET BY MOUTH ONCE DAILY NEEDED FOR 16 DAYS 01/30/2020 Active busPIRone (BUSPAR) 7.5 MG tablet Take 7.5 mg by mouth 3 times daily 08/13/2020 Active cyclobenzaprine (FLEXERIL) 10 MG tablet 06/22/2020 Active lisinopril (PRINIVIL; ZESTRIL) 10 MG tablet Take 10 mg by mouth once daily 01/30/2020 Active naproxen (NAPROSYN) 500 MG tablet TAKE 1 TABLET BY MOUTH TWICE DAILY FOR 14 DAYS 11/01/2019 Active NICOTROL 10 MG inhaler INHALE 10 CARTRIDGES EVERY DAY NEEDED FOR 45 DAYS 09/06/2020 Active nitrofurantoin monohyd macro crystals (MACROBID) 100 MG capsule TAKE 1 CAPSULE BY MOUTH EVERY 12 HOURS FOR 5 DAYS WITH FOOD 12/16/2019 Active omeprazole (PRILOSEC) 20 MG capsule Take 1 (one) capsule by mouth once daily 08/02/2020 Active ibuprofen (MOTRIN) 200 MG tablet Take by mouth every 6 hours as needed for Pain Active methylPREDNISolone (MEDROL DOSEPAK) 4 MG tabletIndications:Chichi mbar radiculopathy Take by mouth as directed Take as directed by mouth per package instructions. 21 tablet 10/08/2020 Active Additional Information Patient not taking.Reported on 03/31/2024 famotidine (Pepcid) 20 MG tablet Take 1 (one) tablet by mouth 2 times daily Active Active Problems No known active problems Encounters Date Type Department Care Team Description 03/31/2024 2:30 PM CORE WINDER Office Visit [facility] - Dermatology [address] [place] [phone] Kunal Fox MD Multiple benign melanocytic nevi of both upper extremities, both lower extremities, and trunk (Primary Dx); Seborrheic keratosis; Lentigines; Crenshaw angioma; Livedo reticularis from Last 3 Months Family History Medical History Relation Name Comments CAD (Coronary Artery Disease) Mother Diabetes - Gestational Mother Relation Name Status Comments Mother Social History Tobacco Use Types Packs/Day Years Used Date Smoking Tobacco: Every Day Cigarettes Smokeless Tobacco: Never Tobacco Cessation:Ready to Q uit: No; Counseling Given: No Alcohol Use Standard Drinks/Week Comments Not Currently 0 (1 standard drink = 0.6 oz pur e alcohol) Sex and Gender Information Value Date Recorded Sex Assigned at Not on file Gender Identity Not on file Sexual Orientation Not on file Last Filed Vital Signs Vital Sign Reading Time Taken Comments Blood Pressure 131/83 10/08/2020 2:38 PM CDT Pulse 81 10/08/2020 2:38 PM CDT Temperature 36.7 C (98 F) 10/08/2020 2:38 PM CDT Respiratory Rate - - Oxygen Saturation 96% 10/08/2020 2:38 PM CDT Inhaled Oxygen Concentration - - Weight 75.3 kg (166 lb) 10/08/2020 2:38 PM CDT Height - - Body Mass Index - - Plan of Treatment Health Maintenance Due Date Last Done Comments LIPID TESTING 1980 MAMMOGRAM 1980 HIV SCREENING 07/10/1995 HEPATITIS C SCREENING 07/05/1998 DTAP/TDAP/TD VACCINES (1 - Tdap) 07/10/1999 HEPATITIS B VACCINE (1 of 3 - 19+ 3-dose series) 07/10/1999 PNEUMOCOCCAL VACCINE (1 of 2 - PCV) 07/10/1999 COVID-19 VACCINE (1 - 2023-2 5 season) 2023 DEPRESSION SCREENING 03/09/2024 INFLUENZA VACCINE (Season Ended) 2024 PAP SMEAR 09/26/2025 09/26/2022 ZOSTER VACCINE (1 of 2) 2030 HIB VACCINE Aged Out No longer eligi ble based on patient's age to complete this topic HPV VACCINE Aged Out No longer eligi ble based on patient's age to complete this topic MENINGOCOCCAL (Group B) VACC INE SHARED DECISION-MAKING Aged Out No longer eligibl e based on patient's age to complete this topic MENINGOCOCCAL GROUPS A/C/Y/W VACCINE Aged Out No longer eligible b ased on patient's age to complete this topic Care Teams Engineer Design And Construction Relationship Specialty Start Date End Date Radha Curran PA-C [address] [place] [phone] PCP - General 05/19/22
--- OUTSIDE RECORDS SUMMARY | 2024-06-16 16:46 | XMS_ITS | Clinical Summary ---
Author Organization [facility] [address] Address [address] [place] [address] Care Team Providers Care Exhaust Equipment Operator Name Role Phone Radha Curran Primary Care Provider + Allergies Active Allergy Reactions Criticality Noted Date Comments Aspirin Unknown Low 02/13/2020 Codeine Rash Medium 02/13/2020 Medications ALPRAZolam (XANAX) 0.25 mg tablet TAKE 1 TABLET BY MOUTH ONCE DAILY NEEDED FOR 16 DAYS 01/30/2020 Active busPIRone (BUSPAR) 5 mg tablet TAKE 1 TABLET BY MOUTH THREE TIMES DAILY FOR 16 DAYS 01/30/2020 Active albuterol HFA (PROVENTIL HFA,VENTOLIN HFA,PROAIR HFA) 90 mcg/actuation inhaler Inhale 2 puffs every 6 (six) hours as needed for wheezing Active hydrOXYzine (VISTARIL) 25 mg capsule 08/27/[address] (NexIUM) 40 mg capsule Take 1 capsule (40 mg total) by mouth daily 07/16/2023 Active famotidine (PEPCID) 20 mg tablet Take 1 tablet (20 mg total) by mouth 2 (two) times a day Active polyethylene glycol (MIRALAX) 17 gram/dose bulk powder Take 17 g by mouth daily Active psyllium (METAMUCIL) powder Take 1 packet by mouth 3 (three) times a day Active Active Problems No known active problems Surgical History Surgery Date Site/Laterality Comments DILATION AND CURETTAGE OF UTERUS Medical History Medical History Date Comments COPD (chronic obstructive pulmonary disease) (HC C) Constipation GERD (gastroesophageal reflux disease) Abdominal bloating Early satiety Family History Medical History Relation Name Comments Heart attack Maternal Grandmother Heart disease Maternal Grandmother Heart attack Mother Heart disease Mother Relation Name Status Comments Maternal Grandmother Mother Social History Tobacco Use Types Packs/Day Years Used Date Smoking Tobacco: Every Day Smokeless Tobacco: Never Alcohol Use Standard Drinks/Week Comments Yes 0 (1 standard drink = 0.6 oz pur e alcohol) rarely Personal Safety Answer Date Recorded Have you ever been in or are you currently in a harmful physical or emotional relationship or is someone making you feel afraid or unsafe? Denies 10/02/2023 Comments Unknown Sex and Gender Information Value Date Recorded Sex Assigned at Not on file Legal Sex Female 3:42 AM SCORER SINGLE Gender Identity Not on file Sexual Orientation Not on file Obstetrics History Last Filed Vital Signs Vital Sign Reading Time Taken Comments Blood Pressure 144/89 08/31/2023 1:42 PM CDT Pulse 92 08/31/2023 1:42 PM CDT Temperature 36.5 C (97.7 F) 08/31/2023 1:42 PM CDT Respiratory Rate 20 08/31/2023 1:42 PM CDT Oxygen Saturation 99% 08/31/2023 1:42 PM CDT Inhaled Oxygen Concentration - - Weight 72.6 kg (160 lb) 08/31/2023 1:42 PM CDT Height 160 cm (5' 3 ) 08/31/2023 1:42 PM CDT Body Mass Index 28.34 08/31/2023 1:42 PM CDT Plan of Treatment Health Maintenance Due Date Last Done Comments Breast Cancer Screening-Mammogram 1980 Cervical Cancer Screening 1980 Depression Screening 1980 Hepatitis C Screening 1980 Varicella Vaccines (1 of 2 - 13+ 2-dose series) 1993 DTaP/Tdap/Td Vaccine (6 - Tdap) 10/30/1995 10/29/1995, 11/04/1985, 01/10/1982, Additional history exists Regular Well Visit/Exam 18-64 1998 Pneumococcal vaccine <65 (1 of 2 - PCV) 07/10/1999 Influenza Vaccine (#1) 2023 Hepatitis B Screening Completed 08/07/1996, 996 HPV Vaccines Aged Out No longer eligi ble based on patient's age to complete this topic Insurance [facility] Care Teams Exhaust Equipment Operator Relationship Specialty Start Date End Date Radha Curran PA PCP - General Physician Partner Manager 02/09/20
--- OUTSIDE RECORDS SUMMARY | 2024-06-16 16:46 | XMS_ITS | Referral Summary ---
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
[2024-06-16 17:40] VITALS: BP 143/92; PULSE 88; RESP 15; TEMP 36.9; O2SAT 100
--- NOTE | 2024-06-16 21:09 | ED.NECK ---
HPI - Neck Pain/Injury General Chief Complaint: Neck Pain/Injury Stated Complaint: left neck pain- Vein bulges out Time Seen by Provider: 06/16/24 20:16 History of Present Illness HPI Narrative: 43-year-old female history of GERD presents to emergency department for left anterior lateral neck pain for the past 2 days. Patient states she will feel sharp sensation over her left sternocleidomastoid followed by a couple pulsatile sensations that last about 1 minute and self-resolved. She cannot identify any aggravating or alleviating factors. She contacted her PCP was advised to come to the ED for further evaluation. She denies injury or trauma, difficulty breathing or swallowing, focal numbness or weakness, chest pain or shortness of breath, fever. Patient is not currently having symptoms. Related Data Home Medications ?Medication ?Instructions ?Recorded ?Confirmed ?Last Taken ?Type levonorgestrel (Mirena) 1 device intrauterine ONCE 09/13/19 12/22/23 02/05/21 History Allergies Allergy/AdvReac Type Severity Reaction Status Date / Time codeine Allergy Intermediate Rash Verified 06/16/24 16:45 aspirin Allergy Unknown Unknown Verified 06/16/24 16:45 erythromycin base Allergy Unknown Unknown Verified 06/16/24 16:45 Review of Systems Review of Systems: All systems reviewed & are unremarkable except as noted in HPI and below PMFSH Past Medical History Medical History Tobacco use Early satiety Abdominal bloating Right arm fracture surgical repair right radius fracture Emphysema lung Bronchitis Depression Anxiety Surgical History Surgical History History of dilatation and curettage Family History Family History Sibling Patient's sister is in good health Patient's brother is in good health Father Family history of malignant neoplasm Patient's father is Mother Family history of diabetes mellitus in first degree relative Family history of heart disease in male family member before age 55 Other Diabetes mellitus Family history of tuberculosis Social History Social History Smoking packs per day: 1 Smoking cigarettes per day: 20.0 Years smoked: 25 Smoking pack-years: 25.00 Smoking status: Current every day smoker Tobacco type: cigarettes Alcohol intake: current Drinks per week: 1 Alcohol use details: social Substance use: current Substance use type: marijuana Last use: daily Lack of Transportation: No Lack of Food: Sometimes True Current Housing: I Have Housing Concerned About Future Housing: No Difficulty Paying Gas/Electric Bills: No Difficulty Paying for Meds: No Currently Unemployed: No Education: Associate Degree Difficulty w/ Childcare or Family Care: No Living arrangements: with family Gender identity (if verbalized by the patient): Female Spiritual care concerns: No Exam Narrative: GENERAL: Well-appearing, well-nourished, and in no acute distress. HEAD: Normocephalic, atraumatic. EYES: PERRLA and EOMI. ENT: Nares clear, no rhinorrhea or epistaxis. Mucous membranes moist. NECK: Mild tenderness along the sternocleidomastoid and left trapezius with no overlying skin changes, edema, rashes or deformity. Patient has full range of motion of shoulder, neck and left upper extremity. Carotid pulses 2+. CHEST: Clear to auscultation. No respiratory distress. HEART: Regular rate and rhythm. No murmur heard. Normal peripheral pulses. EXTREMITIES: Normal range of motion. No edema. SKIN: Warm, dry, no rash. NEURO: No focal deficits. Alert and oriented x4. Cranial nerves 2-12 intact. Strength 5/5 BUE and BLE. Sensation intact throughout Course Vital Signs Vital signs: Vital Signs Temperature 98.4 F 06/16/24 17:40 Pulse Rate 88 06/16/24 17:40 Respiratory Rate 15 06/16/24 17:40 Blood Pressure 143/92 H 06/16/24 17:40 Pulse Oximetry 100 06/16/24 17:40 Oxygen Delivery Room Air 06/16/24 17:40 Temperature 98.4 F 06/16/24 17:40 Pulse Rate 80 06/16/24 21:22 Respiratory Rate 16 06/16/24 21:22 Blood Pressure 138/62 06/16/24 21:22 Pulse Oximetry 99 06/16/24 21:22 Oxygen Delivery Room Air 06/16/24 17:40 MDM - Neck Pain/Injury MDM Narrative Medical decision making narrative: 43-year-old female presents to emergency department for left anterior lateral intermittent neck pain and spasms for the past 2 days. See HPI for further history. Vitals are stable. Patient is afebrile and nontoxic appearing. Patient is neurovascularly intact, pulses are intact. She does have mild tenderness over the left sternocleidomastoid and trapezius muscles with no overlying skin changes or deformity. Patient is currently asymptomatic. Shared decision making regarding workup. Discussed differential diagnoses including spasmodic torticollis, the sternocleidomastoid or trapezius strain, DVT to the jugular vein, dissection and other. Discussed obtaining imaging of her neck, however patient politely declines and agrees to follow-up with her PCP and return if new or worsening symptoms. I feel this is fair given she again is currently asymptomatic, is neurovascularly intact without focal deficits, her symptoms have been occurring for several days, no injury or trauma, no risk factors for DVT. Patient understands the risks of not obtaining further workup at this time. Will send Flexeril to the pharmacy. Discussed strict ED return precautions. She is agreeable with the plan verbalized understanding. Discharged in stable condition. Discharge Plan Discharge Clinical Impression: Neck pain on left side Patient Disposition: Home Condition: Stable Instructions: Antibiotic Form, Neck Pain (ED) Additional Instructions: You were evaluated in the emergency department for left-sided intermittent neck pain. We discussed obtaining imaging of your neck, however you declined. Please take muscle relaxers and anti-inflammatories as directed follow-up closely with your primary care provider. Return to the emergency department if you develop vision changes, focal numbness or weakness, chest pain or shortness of breath, sudden-onset headache, or other concerning symptoms. Patient Language: Bulgarian Prescriptions: New cyclobenzaprine 10 mg tablet 10 mg PO TID PRN (Reason: muscle spasm) Qty: 14 0RF No Action prednisone 50 mg tablet 50 mg PO DAILY Qty: 4 0RF methocarbamol 500 mg tablet 500 mg PO TID PRN (Reason: muscle spasm) Qty: 15 0RF Mirena 20 mcg/24 hours (5 yrs) 52 mg Intrauterine Device 1 device INTRAUTERINE ONCE Follow-up/Referrals: Magdy,ANDREI Stacy [Primary Care Provider] -
--- OUTSIDE RECORDS SUMMARY | 2024-06-16 21:14 | XMS_ITS | Clinical Summary ---
Author Organization [facility] Address [address] [place] [address] Care Team Providers Care Information Systems Architect Name Role Phone Unavailable Primary Care Provider [...]
--- OUTSIDE RECORDS SUMMARY | 2024-06-16 21:14 | XMS_ITS | Clinical Summary ---
Author Organization [facility] Address [address] [address] Care Team Providers Care Traveling Representative Name Role Phone Radha Curran PA-C Primary Care Provider Source Comments [facility],non-owned Affiliates and Associated Physician Practices is amultiple site organization consisting of ambulatory clinics and hospital sitesin [place], [place], [place] and [place]. This disclosure is being madepursuant to the Care Everywhere program and may not contain all information available regarding this patient. 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
--- OUTSIDE RECORDS SUMMARY | 2024-06-16 21:14 | XMS_ITS | Clinical Summary ---
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
--- OUTSIDE RECORDS SUMMARY | 2024-06-16 21:14 | XMS_ITS | Referral Summary ---
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
[2024-06-16 21:22] VITALS: BP 138/62; PULSE 80; RESP 16; O2SAT 99
== END 2024-06-16 21:23 | disposition home or self-care (01) ==
LOC: ANHED 21:12
PROVIDERS: Emergency Provider Physician Assistant; PCP Physician Assistant
DX: M54.2 Cervicalgia (principal); J43.9 Emphysema, unspecified; F17.210 Nicotine dependence, cigarettes, uncomplicated; Z97.5 Presence of (intrauterine) contraceptive device
CPT/HCPCS: 99283

== ENCOUNTER 2024-10-25 19:20 | Emergency (ER) | payer OTHER, SELFPAY ==
[2024-10-25 19:25] VITALS: BP 135/83; PULSE 98; RESP 16; TEMP 36.5; O2SAT 98
--- NOTE | 2024-10-25 19:33 | ED_ITS ---
HPI - Ear Problem General Chief complaint: Ear Stated complaint: Ears Irritation Time Seen by Provider: 10/25/24 19:32 Source: patient and RN notes reviewed Mode of arrival: ambulatory Limitations: no limitations History of Present Illness HPI Narrative: 44-year-old female presents with concern for right earache for 3 days. Reports she went swimming and since then has had an earache. She denies any drainage from the ear. She denies Raynaud's, stuffy nose, sore throat, fever, cough. Denies history of ear infections. MD Complaint: ear pain Related Data Home Medications ?Medication ?Instructions ?Recorded ?Confirmed ?Last Taken ?Type levonorgestrel (Mirena) 1 device intrauterine ONCE 0 09/13/19 12/22/23 02/05/21 H istory Allergies Allergy/AdvReac Type Severity Reaction Status Date / Time codeine Allergy Intermediate Rash Verified 10/25/24 19:25 aspirin Allergy Unknown Unknown Verified 10/25/24 19:25 erythromycin base Allergy Unknown Unknown Verified 10/25/24 19:25 Review of Systems Review of Systems: CONSTITUTIONAL: Denies malaise, chills, sweats, or fever. EYES: Denies visual changes, redness, or discharge. ENT: Denies rhinorrhea, congestion, sinus pain, and sore throat. Reports right ear pain CARDIOVASCULAR: Denies chest pain, palpitations, or edema. RESPIRATORY: Denies cough. Denies dyspnea. GASTROINTESTINAL: Denies abdominal pain, nausea, vomiting, diarrhea SKIN: Denies rash or itching. MUSCULOSKELETAL: Denies myalgia. NEUROLOGIC: Denies headache. All systems reviewed & are unremarkable except as noted in HPI and below PMFSH Past Medical History Medical History Tobacco use Early satiety Abdominal bloating Right arm fracture surgical repair right radius fracture Emphysema lung Bronchitis Depression Anxiety Surgical History Surgical History History of dilatation and curettage Family History Family History Sibling Patient's sister is in good health Patient's brother is in good health Father Family history of malignant neoplasm Patient's father is Mother Family history of diabetes mellitus in first degree relative Family history of heart disease in male family member before age 55 Other Diabetes mellitus Family history of tuberculosis Social History Social History Smoking packs per day: 1 Smoking cigarettes per day: 20.0 Years smoked: 25 Smoking pack-years: 25.00 Smoking status: Current every day smoker Tobacco type: cigarettes Alcohol intake: current Drinks per week: 1 Alcohol use details: social Substance use: current Substance use type: marijuana Last use: daily Lack of Transportation: No Lack of Food: Sometimes True Current Housing: I Have Housing Concerned About Future Housing: No Difficulty Paying Gas/Electric Bills: No Difficulty Paying for Meds: No Currently Unemployed: No Education: Associate Degree Difficulty w/ Childcare or Family Care: No Living arrangements: with family Gender identity (if verbalized by the patient): Female Spiritual care concerns: No Comments At time of signature, agree with nursing past medical, surgical, social and family history. There is no relevant family history pertinent to the presenting complaint Exam Narrative: GENERAL: Well-appearing, well-nourished, and in no acute distress. HEAD: Normocephalic EYES: PERRLA, conjunctivae clear ENT: Nares clear. Mucous membranes moist. TM pearly paulson with dull light reflex on the right, sharp on the left; no tragal tenderness, EAC mildly erythematous but otherwise unremarkable. No post or pre-auricular erythema, induration, or warmth noted. Oropharynx not erythematous without lesions. Tonsils not enlarged and without exudate, no drooling, no hoarseness, no trismus, uvula midline. NECK: Supple. No lymphadenopathy CHEST: Clear to auscultation, breath sounds equal. No wheezing, rhonchi, rales, or stridor. No respiratory distress, speaks in full sentences. HEART: Regular rate and rhythm. No murmur heard. SKIN: Warm, dry, no rash. NEURO: Alert and oriented x3. PSYCH: Normal mood and affect Course Course Emergency Course: Patient is aware of diagnosis, understands and agrees to treatment plan. Anticipatory guidance given. Patient agrees to follow-up as directed and is aware of reasons to seek care at the emergency department. Portions of this record may have been created with voice recognition software Level of Care: Express Care Visit Vital Signs Vital signs: Vital Signs Temperature 97.7 F 10/25/24 19:25 Pulse Rate 98 10/25/24 19:25 Respiratory Rate 16 10/25/24 19:25 Blood Pressure 135/83 10/25/24 19:25 Pulse Oximetry 98 10/25/24 19:25 Temperature 97.7 F 10/25/24 19:25 Pulse Rate 98 10/25/24 19:25 Respiratory Rate 16 10/25/24 19:25 Blood Pressure 135/83 10/25/24 19:25 Pulse Oximetry 98 10/25/24 19:25 Reviewed. Medical Decision Making MDM Narrative Medical decision making narrative: I evaluated this in the [facility] care. History is obtained from patient who is an independent historian and physical exam was performed.? Available medical records were reviewed. ? Exam findings and relevant testing show no acute concerns or changes; patient is non-toxic appearing and is in no distress. Differential diagnosis considered: Rosales virus, strep pharyngitis, allergic rhinitis, upper respiratory tract infection, sinusitis, rhinosinusitis, nasopharyngitis. viral pharyngitis, otitis media, otitis externa, otitis effusion, pre/post auricular cellulitis, mastoiditis, cerumen impaction, foreign body. Exam findings show no acute concerns or changes; patient is non-toxic appearing and is in no distress. Patient is appropriate for outpatient treatment and follow-up. ? Differential diagnosis and treatment plan were discussed with the patient. Patient agrees with discussion and after shared medical decision making agrees with plan of care. All questions were answered to the patient's satisfaction. Patient is appropriate for outpatient treatment and follow-up. Vital Signs Vital Signs: Vital Signs Temperature 97.7 F 10/25/24 19:25 Pulse Rate 98 10/25/24 19:25 Respiratory Rate 16 10/25/24 19:25 Blood Pressure 135/83 10/25/24 19:25 Pulse Oximetry 98 10/25/24 19:25 Temperature 97.7 F 10/25/24 19:25 Pulse Rate 98 10/25/24 19:25 Respiratory Rate 16 10/25/24 19:25 Blood Pressure 135/83 10/25/24 19:25 Pulse Oximetry 98 10/25/24 19:25 Critical Care Time Critical Care Time Critical Care Time: No Discharge Plan Discharge Clinical Impression: Ear ache Patient Disposition: Home Condition: Stable Instructions: Earache (ED) Additional Instructions: Take medications as directed for redness of that yourr ear canal and fluid in your middle ear Recommend antihistamine such as Benadryl at night time and Zyrtec or Ifeoma during the day until symptoms improve Also, recommend symptomatic treatment includes: rest, fluids, and increase humidity of the air at home. Recommend Acetaminophen as directed on the bottle to reduce fever, pain Please schedule a follow-up visit with your personal physician for further evaluation and treatment within 3-5days. If your symptoms persist, change or worsen significantly before you can contact your personal physician then please, without delay, go to the emergency department for further evaluation. Patient Language: Niuean Prescriptions: New pseudoephedrine HCl [12 Hour Decongestant] 120 mg tablet extended release 120 mg PO Q12H PRN (Reason: nasal congestion) Qty: 20 0RF [id number] 3.5-10,000-1 mg/mL-unit/mL-% drops,suspension 4 drop RIGHT EAR Q8H 7 Days Qty: 10 0RF No Action Mirena 20 mcg/24 hours (5 yrs) 52 mg Intrauterine Device 1 device INTRAUTERINE ONCE Follow-up/Referrals: Magdy,ANDREI Stacy [Primary Care Provider, Family Practice] Time of Disposition: 19:41
== END 2024-10-25 19:47 | disposition home or self-care (01) ==
PROVIDERS: Emergency Provider Nurse Practitioner; PCP Physician Assistant
DX: H92.01 Otalgia, right ear (principal); F17.210 Nicotine dependence, cigarettes, uncomplicated
CPT/HCPCS: 99213; G0463

== ENCOUNTER 2024-12-07 17:05 | Emergency (ER) | payer OTHER, SELFPAY ==
[2024-12-07 17:14] VITALS: BP 137/81; PULSE 72; RESP 18; TEMP 36.2; O2SAT 100
--- NOTE | 2024-12-07 17:33 | ED_ITS ---
HPI - Extremity Injury (Upper) General Chief Complaint: Extremity Injury, Upper Stated Complaint: pain in left hand Time Seen by Provider: 12/07/24 17:06 Source: patient Mode of arrival: ambulatory Limitations: no limitations History of Present Illness HPI narrative: Patient is a 44-year-old female who presents with 1 week left wrist/hand pain. Denies any injury and is right handed. States the most repetitive motion she does the scroll on her phone with left thumb. Has taken Tylenol with mild relief. Has not taken any ibuprofen as it causes GI upset. Has not used ice or Chema wrap. Patient does not currently have PCP Related Data Home Medications ?Medication ?Instructions ?Recorded ?Confirmed ?Last Taken ?Type levonorgestrel (Mirena) 1 device intrauterine ONCE 0 09/13/19 12/22/23 02/05/21 History peg 3350-electrolytes 236 ml 12/07/24 Unknown History gram-22.74 gram-6.74 gram-5.86 gram solution Allergies Allergy/AdvReac Type Severity Reaction Status Date / Time codeine Allergy Intermediate Rash Verified 12/07/24 17:07 aspirin Allergy Unknown Unknown Verified 12/07/24 17:07 erythromycin base Allergy Unknown Unknown Verified 12/07/24 17:07 Review of Systems Review of Systems: All systems reviewed & are unremarkable except as noted in HPI and below Constitutional: Constitutional: Denies body ache(s), Denies chills, Denies fatigue, Denies fever(s), Denies headache(s), Denies malaise and Denies weakness Eyes: Eyes: Denies blurry vision, Denies irritation and Denies loss of vision ENT: Denies otalgia, Denies headache(s), Denies nasal discharge, Denies sinus pain and Denies sore throat Cardiovascular: Cardiovascular: Denies chest pain, Denies irregular heart rhythm and Denies dyspnea Respiratory: Respiratory: Denies dyspnea Gastrointestinal: Gastrointestinal: Denies abdominal pain, Denies melena, Denies hematochezia, Denies diarrhea, Denies nausea and Denies vomiting Musculoskeletal: Musculoskeletal: Denies back pain, Denies myalgias and Reports arthralgias Integumentary/Breasts: Skin/Breast: Denies pruritus and Denies rash Neurologic: Denies headache(s), Denies loss of vision and Denies weakness Psychiatric: Psychiatric: Reports no additional psychiatric complaints Endocrine: Endocrine: Denies fatigue [facility] Past Medical History Medical History Tobacco use Early satiety Abdominal bloating Right arm fracture surgical repair right radius fracture Emphysema lung Bronchitis Depression Anxiety Surgical History Surgical History History of dilatation and curettage Family History Family History Sibling Patient's sister is in good health Patient's brother is in good health Father Family history of malignant neoplasm Patient's father is Mother Family history of diabetes mellitus in first degree relative Family history of heart disease in male family member before age 55 Other Diabetes mellitus Family history of tuberculosis Social History Social History Smoking packs per day: 1 Smoking cigarettes per day: 20.0 Years smoked: 25 Smoking pack-years: 25.00 Smoking status: Current every day smoker Tobacco type: cigarettes Alcohol intake: current Drinks per week: 1 Alcohol use details: social Substance use: current Substance use type: marijuana Last use: daily Lack of Transportation: No Lack of Food: Sometimes True Current Housing: I Have Housing Concerned About Future Housing: No Difficulty Paying Gas/Electric Bills: No Difficulty Paying for Meds: No Currently Unemployed: No Education: Associate Degree Difficulty w/ Childcare or Family Care: No Living arrangements: with family Gender identity (if verbalized by the patient): Female Spiritual care concerns: No Comments At time of signature, agree with nursing past medical, surgical, social and family history. There is no relevant family history pertinent to the presenting complaint. Exam Const: General: cooperative, healthy appearing, comfortable, no acute distress and well nourished Nutritional Appearance: well nourished Orientation/consciousness: patient oriented x3 Limitations: no limitations HENMT: Head: normal to inspection, normocephalic and atraumatic Ears: hearing grossly normal bilaterally and external ears normal Face/Nose/Sinus: Normal external nose present, normal facial exam and face symmetric Face and sinus: normal facial exam and face symmetric Mouth: Yes lip normal Eyes: General: appearance normal, both eyes and all related structures Alignment and Position: alignment normal and position normal Periorbital: periorbital findings normal Eyelids: eyelids normal Pupils: Equal, round and reactive pupils present EOM: EOMs intact bilaterally Neck: Neck: normal visual inspection, full ROM and supple Chest: Chest palpation & inspection: normal inspection of the chest Resp: Effort & Inspection: normal respiratory effort and able to speak in complete sentences Auscultation: clear to auscultation bilaterally Cardio: Rate: regular rate Rhythm: regular rhythm Heart sounds: S1 normal heart sound present and S2 normal heart sound present GI: Inspection: normal to inspection Skin: General skin exam: normal color and no rashes or lesions noted Neuro: General: patient oriented x3 and moves all extremities Cranial nerves: Yes Equal, round and reactive pupils present Speech: normal speech Gait exam (Neuro): Normal gait present Extrem: General: normal to inspection, full ROM and no edema Left upper extremity: elbow/forearm normal to inspection and normal ROM; no tenderness and no swelling, wrist normal to inspection, tenderness of the dorsal wrist, normal ROM and radial pulse present; no ecchymosis and hand normal to inspection, normal capillary refill, neuromotor exam normal Details: wrist extension normal, thumb opposition normal, thumb IP flexion normal, thumb ADduction normal and fingers 2-5 ABduction normal, neurosensory exam normal Details: radial nerve sensory function normal, ulnar nerve sensory function normal, median nerve sensory function normal and digital nerve sensory function normal, tendon exam normal Location: of all digits Details: extensor tendon, flexor digitorum profundus and flexor digitorum superficialis, tenderness of the thumb involving the entire digit, vascular exam radial pulse present and normal capillary refill, normal ROM of fingers and no swelling; no ecchymosis Psych: Appearance: grossly normal and well kempt Mental Status: mental status grossly normal Speech and movement: Normal speech and movement present Affect: normal affect Attitude: cooperative Thought process: Normal thought process present Course Course Emergency Course: Patient is aware of diagnosis, understands and agrees to treatment plan. Anticipatory guidance given. Patient agrees to follow-up as directed and is aware of reasons to seek care at the emergency department. Portions of this record may have been created with voice recognition software Level of Care: Express Care Visit Vital Signs Vital signs: Vital Signs Temperature 36.2 C L 12/07/24 17:14 Pulse Rate 72 12/07/24 17:14 Respiratory Rate 18 12/07/24 17:14 Blood Pressure 137/81 10/01/25 17:14 Pulse Oximetry 100 12/07/24 17:14 Oxygen Delivery Room Air 12/07/24 17:14 Temperature 36.2 C L 12/07/24 17:14 Pulse Rate 72 12/07/24 17:14 Respiratory Rate 18 12/07/24 17:14 Blood Pressure 137/81 12/07/24 17:14 Pulse Oximetry 100 12/07/24 17:14 Oxygen Delivery Room Air 12/07/24 17:14 Reviewed MDM - Extremity Injury (Upper) MDM Narrative Medical decision making narrative: The L wrist is without obvious asymmetry or deformity when compared to the R wrist. NO surface trauma, open wounds, swelling or obvious deformity. No overlying erythema or warmth. No bony crepitus or focal area of tender to palpate.Normal flexion/extension, ulnar/radial deviation. Motor/sensory function of ulnar, radial, median nerves intact. Ulnar pulses intact. Chema wrap applied Pt well hydrated appearing, in no respiratory distress, hemodynamically stable. Recommend supportive care. The patient is stable at time of discharge the clinical impression was discussed and the patient was given the opportunity to ask questions, which were addressed as completely as possible given the information available at present. Anticipatory guidance and return to care precautions were discussed and the importance of primary care follow-up was stressed and encouraged. The patient voiced understanding of the plan, indications to return, and the need for follow-up. Exam findings show no acute concerns or changes Patient is appropriate for outpatient treatment and follow-up. Differential Diagnosis Differential diagnosis: Likely sprain and strain of wrist and fracture of wrist Medical Records Attestation: I reviewed the patient's medical records. Discharge Plan Discharge Clinical Impression: Sprain and strain of wrist Patient Disposition: Home Condition: Stable Instructions: Wrist Sprain (ED) Additional Instructions: Minimize activities that aggravate the condition The RICE protocol. Follow the RICE protocol as soon as possible after your injury:. Ice should be immediately applied to keep the swelling down. It can be used for 20 to 30 minutes, three or four times daily. Do not apply ice directly to your skin. Compression dressings, bandages or chema-wraps will immobilize and support your injured wrist. Elevate your Wrist above the level of your heart as often as possible during the first 48 hours. Medication: Nonsteroidal anti-inflammatory drugs (NSAIDs) such as naproxen can help control pain and swelling. Because they improve function by both reducing swelling and controlling pain, they are a better option for mild sprains than narcotic pain medicines. Please schedule a follow-up visit with your personal physician for further evaluation and treatment within 1week OR If your symptoms persist, change or worsen significantly before you can contact your personal physician then please, without delay, go to the emergency department for further evaluation. Patient Language: Mohawk Prescriptions: No Action Mirena 20 mcg/24 hours (5 yrs) 52 mg Intrauterine Device 1 device INTRAUTERINE ONCE peg 3350-electrolytes 236-22.74-6.74 -5.86 gram recon soln Follow-up/Referrals: Sima Villavicencio DO [Physician, Family Practice] - 3 Days Referral Note: Establish care Time of Disposition: 17:46
== END 2024-12-07 17:50 | disposition home or self-care (01) ==
PROVIDERS: Emergency Provider Nurse Practitioner Family
DX: S63.502A Unspecified sprain of left wrist, initial encounter (principal); S66.912A Strain of unspecified muscle, fascia and tendon at wrist and hand level, left hand, initial encounter; X58.XXXA Exposure to other specified factors, initial encounter; J43.9 Emphysema, unspecified; F17.210 Nicotine dependence, cigarettes, uncomplicated; F12.90 Cannabis use, unspecified, uncomplicated
CPT/HCPCS: 99212; G0463